=== PATIENT | male | born 1955 | race Caucasian/White ===

== ENCOUNTER 2020-03-12 11:33 | Emergency (ER) | payer MEDICARE, SELFPAY ==
[2020-03-12 11:43] VITALS: BP 118/93; PULSE 104; RESP 16; TEMP 37.1; O2SAT 98
--- NOTE | 2020-03-12 11:46 | ED.SKABFB ---
HPI - Skin/Abscess/Foreign Bdy General Chief complaint: Skin/Abscess/Foreign Body Stated complaint: rash on arms/legs/hands Time Seen by Provider: 03/12/20 11:46 Source: patient and RN notes reviewed History of Present Illness HPI narrative: Patient is a 64-year-old male who presents the urgent care with complaints of a bruising rash to bilateral arms, hands, legs, chin. Patient states that it started approximately 2 weeks ago and he is now starting week 3. Patient has been lathering himself and calamine lotion but states some of it is just not healing . Patient denies of any fevers, nausea, vomiting. Patient has not used anything else [id number] for symptoms. No other acute complaints. No acute distress noted. Patient read the plan of care. Related Data Allergies Allergy/AdvReac Type Severity Reaction Status Date / Time No Known Allergies Allergy Verified 03/12/20 11:57 Review of Systems Review of Systems: Narrative: CONSTITUTIONAL: Denies fever, chills, or sweats. EYES: Denies visual changes, redness, or discharge. ENT: Denies rhinorrhea, congestion, sore throat, or otalgia. CARDIOVASCULAR: Denies chest pain, palpitations, or edema. RESPIRATORY: Denies cough or dyspnea. GASTROINTESTINAL: Denies abdominal pain, nausea, vomiting, or diarrhea. GENITOURINARY: Denies dysuria or hematuria. SKIN: Reports of poison elvis to bilateral lower legs, bilateral arms and the face MUSCULOSKELETAL: Denies back pain, joint pain, or myalgia. NEUROLOGIC: Denies headache, numbness, or weakness. All other systems reviewed are negative, except as documented in HPI. PMFSH Comments At the time of my signature, I reviewed and agree with the nursing past medical, surgical, social, and family history. There is no relevant family history pertinent to the patient complaint. Exam Narrative: Exam Narrative: GENERAL: This is a well-nourished, well-developed patient, in no apparent distress. HEAD: normocephalic, atraumatic. EYES: PERRL. Sclera clear/white. Vision is grossly intact. EARS: External ears normal NOSE: External nose normal with no obvious nasal discharge, nares without redness, no rhinorrhea. THROAT: Mucous membranes moist NECK: Neck supple SKIN: 6 x 8cm area of erythema of oozing wound to the anterior right knee, 3 x 3 cm area of crusted impetigo noted to the chin, 3 cm linear erythemic region to the left upper arm; multiple areas of Conchis dermatitis noted bilateral lower legs, bilateral arms NEURO: awake, alert, and oriented to person, place and time. There were no obvious focal neurologic abnormalities. EXTREMITIES: Mild edema noted to the right knee with positive strong right pedal pulse and capillary refill less than 2 seconds. Course Vital Signs Vital signs: Vital Signs Temperature 98.8 F 03/12/20 11:43 Pulse Rate 104 H 03/12/20 11:43 Respiratory Rate 16 03/12/20 11:43 Blood Pressure 118/93 H 03/12/20 11:43 Pulse Oximetry 98 03/12/20 11:43 Temperature 98.8 F 03/12/20 11:43 Pulse Rate 104 H 03/12/20 11:43 Respiratory Rate 16 03/12/20 11:43 Blood Pressure 118/93 H 03/12/20 11:43 Pulse Oximetry 98 03/12/20 11:43 Reviewed?patient is informed that they may have pre-hypertension or hypertension based on a blood pressure reading in the department. I recommend the patient call the primary care provider listed on their discharge instructions or a physician of their choice this week to arrange follow-up for further evaluation of possible pre-hypertension or hypertension. MDM - Skin/Abscess/Foreign Bdy MDM Narrative Medical decision making narrative: Advised the patient not to put calamine lotion over the areas of infection to the right knee, left upper arm and right chin. Calamine lotion is likely not necessary when she start the oral steroid regimen. Make sure to complete the steroids as directed. Complete oral antibiotic regimen as directed. If you develop any severe nausea or vomiting or increased rash wi
== END 2020-03-12 12:20 | disposition home or self-care (01) ==
PROVIDERS: Emergency Provider Nurse Practitioner Family
DX: L23.7 Allergic contact dermatitis due to plants, except food (principal); L01.00 Impetigo, unspecified; L03.115 Cellulitis of right lower limb
CPT/HCPCS: 99213; G0463

== ENCOUNTER 2023-12-09 11:16 | Outpatient (CLI) | payer MEDICARE, SELFPAY ==
--- NOTE | ~2023-12-09 | XR_ITS ---
Clinical Indication: Cough PA and lateral views of the chest: Comparison: None Findings: There is interstitial prominence/pattern in the right lung base. Left lung clear.. Cardiom ediastinal silhouette is within normal limits. Bones and soft tissues are unremarkable. Impression: Interstitial pattern right lung base, which could reflect small airways infectious process or other a typical infection. Reviewed, dictated and finalized at location . Impression: Interstitial pattern right lung base, which could reflect small airways infecti ous process or other atypical infection.
[2023-12-09 18:59] LABS: Hematocrit 45.7 % (42.0-52.0); Hemoglobin 15.3 g/dL (14.0-18.0); Mean Corpuscular HGB Conc 33.5 g/dl (32-36); Mean Corpuscular Hemoglobin 33.6 pg (26-34); Mean Corpuscular Volume 100.4 fl (80-100); Mean Platelet Volume 9.6 fl (7.4-10.4); Platelet Count Result 324 k/mm3 (150-375); Red Blood Count 4.55 M/mm3 (4.6-6.20); Red Cell Distribution Width 13.2 % (11.5-14.5); White Blood Count 10.9 K/mm3 (4.5-10.0)
[2023-12-09 19:50] LABS: Alanine Aminotransferase 24 U/L (6-50); Albumin Level 4.6 g/dL (3.5-5.1); Alkaline Phosphatase 115 U/L (38-126); Anion Gap 11 mmol/L (4-12); Aspartate Amino Transferase 87 U/L (17-59); Bilirubin,Total 1.3 mg/dL (0.2-1.3); Blood Urea Nitrogen 8 mg/dL (9-20); Calcium 9.6 mg/dL (8.4-10.2); Carbon Dioxide 26 mmol/L (22-30); Chloride 94 mmol/L (98-107); Estimated Glomerular Filt Rate > 60; Glucose 101 mg/dL (65-110); Potassium 4.9 mmol/L (3.4-5.0); Sodium 131 mmol/L (137-145)
[2023-12-09 22:27] LABS: Folic Acid 11.1 ng/mL (2.76->20)
== END 2023-12-09 11:17 | disposition home or self-care (01) ==
PROVIDERS: PCP Nurse Practitioner Adult Health; Visit Provider Nurse Practitioner Adult Health
DX: F10.10 Alcohol abuse, uncomplicated (principal); R05.9 Cough, unspecified; Z87.891 Personal history of nicotine dependence; R53.1 Weakness; Z12.5 Encounter for screening for malignant neoplasm of prostate; R91.8 Other nonspecific abnormal finding of lung field
CPT/HCPCS: 36415; 71046; 80053; 82607; 82746; 84153; 84425; 85027; G0103

== ENCOUNTER 2023-12-23 11:25 | Outpatient (CLI) | payer MEDICARE, SELFPAY ==
--- NOTE | ~2023-12-23 | XR_ITS ---
XR chest 2V 12/23/2023 11:37 Indication: Interstitial infiltrates on prior examination. Procedure: 2 view chest Comparison: 12/09/2023 Findings: Persistent coarse interstitial infiltrates bilaterally with reticulonodular appearance in t he right lung base. Elevated left diaphragm. No pleural effusion. Heart size normal. There is atheros clerosis. Impression: 1: Coarse bilateral interstitial infiltrates are persistent. Differential diagnosis includes pneumoni a, edema and interstitial fibrosis. Consider correlation with CT chest without contrast. Reviewed, dictated and finalized at location B. Impression: 1: Coarse bilateral interstitial infiltrates are persistent. Differential diagn osis includes pneumonia, edema and interstitial fibrosis. Consider correlation with CT chest without contrast.
== END 2023-12-23 11:26 | disposition home or self-care (01) ==
LOC: ANHBWCIMG 11:27
PROVIDERS: PCP Nurse Practitioner Adult Health; Visit Provider Nurse Practitioner Adult Health
DX: R93.89 Abnormal findings on diagnostic imaging of other specified body structures (principal)
CPT/HCPCS: 71046

== ENCOUNTER 2024-01-09 12:16 | Outpatient (CLI) | payer MEDICARE, SELFPAY ==
--- NOTE | 2024-01-09 17:01 | WPDSIXMINUTE ---
Six Minute Walk Procedure Procedure Performed Pulmonary Stress Test (6 min walk) Six Minute Walk Six Minute Walk: This is a 6 minute walk test. The test was performed and interpreted in accordance with the 2014 ERS/ATS task force guidelines. Findings: The patient's resting room air oxygen saturation measured by pulse oximetry was 94% and heart rate was 59 bpm. Patient ambulated for 244 meters and oxygen saturation remained 93 to 96%. Heart rate at the end of the study was 76 bpm. The patient did not qualify for supplemental oxygen at rest or with ambulation. There are no prior studies for comparison.
== END 2024-01-09 12:17 | disposition home or self-care (01) ==
LOC: ANHPFT 12:17
PROVIDERS: PCP Nurse Practitioner Adult Health; Visit Provider Nurse Practitioner Adult Health
DX: R06.02 Shortness of breath (principal); Z87.891 Personal history of nicotine dependence
CPT/HCPCS: 94618

== ENCOUNTER 2024-04-27 11:28 | Outpatient (CLI) | payer MEDICARE, SELFPAY ==
[2024-04-27 20:06] LABS: Hematocrit 42.4 % (42.0-52.0); Hemoglobin 14.6 g/dL (14.0-18.0); Mean Corpuscular HGB Conc 34.4 g/dl (32-36); Mean Corpuscular Volume 104.7 fl (80-100); Mean Platelet Volume 9.5 fl (7.4-10.4); Platelet Count Result 281 k/mm3 (150-375); Red Blood Count 4.05 M/mm3 (4.6-6.20); White Blood Count 5.5 K/mm3 (4.5-10.0)
[2024-04-27 20:24] LABS: Alanine Aminotransferase 52 U/L (6-50); Albumin Level 4.2 g/dL (3.5-5.1); Alkaline Phosphatase 173 U/L (38-126); Anion Gap 8 mmol/L (4-12); Aspartate Amino Transferase 140 U/L (17-59); Bilirubin,Total 1.2 mg/dL (0.2-1.3); Blood Urea Nitrogen 7 mg/dL (9-20); Calcium 8.8 mg/dL (8.4-10.2); Carbon Dioxide 28 mmol/L (22-30); Chloride 93 mmol/L (98-107); Cholesterol 175 mg/dL (0-200); Estimated Glomerular Filt Rate > 60; Glucose 91 mg/dL (65-110); Potassium 4.5 mmol/L (3.4-5.0); Sodium 129 mmol/L (137-145); Triglycerides 63 mg/dL (<150)
[2024-04-27 20:27] LABS: HDL Direct 133 mg/dL; LDL Cholesterol Direct < 30 mg/dL
[2024-04-27 20:34] LABS: Free T4 Free Thyroxine 0.94 ng/mL (0.78-2.19)
[2024-04-27 21:20] LABS: Folic Acid > 20.0 ng/mL (2.76->20); Vitamin B12 > 1000.0 pg/mL (239-931)
[2024-04-29 11:13] LABS: Thyroid Peroxidase Antibodies <1 IU/mL (<9)
== END 2024-04-27 11:29 | disposition home or self-care (01) ==
LOC: ANHBWCLAB 11:30
PROVIDERS: PCP Nurse Practitioner Adult Health; Visit Provider Nurse Practitioner Adult Health
DX: I25.10 Atherosclerotic heart disease of native coronary artery without angina pectoris (principal); E04.1 Nontoxic single thyroid nodule; F10.10 Alcohol abuse, uncomplicated
CPT/HCPCS: 36415; 80053; 80061; 82607; 82746; 84439; 84443; 85027; 86376

== ENCOUNTER 2024-06-15 09:58 | Outpatient (CLI) | payer MEDICARE, SELFPAY ==
--- NOTE | ~2024-06-15 | NM_ITS ---
EXAMINATION: NM jung stress w perfusion DATE: 06/15/2024 12:01 INDICATION: Cardiac murmur. TECHNIQUE: Rest images were obtained following intravenous administration of 9.2 mCi Tc99m tetrofosmi n (Myoview). The patient was infused intravenously with Lexiscan (regadenoson). Then, 29.7 mCi Tc99m tetrofosmin (Myoview) was administered intravenously, and stress images were obtained. Data was recon structed into short axis and horizontal and vertical long axis SPECT images. Gated SPECT images were also obtained. COMPARISON: None. FINDINGS: There is a moderate-sized, mild, fixed perfusion defect involving apical septal, mid jaun septal, and mid inferoseptal segments of left ventricle, consistent with infarct. No reversible compo nent to suggest ischemia.. There is no segmental wall motion abnormality. Left ventricular ejection fraction measures >70%. IMPRESSION: 1. Moderate-sized area of mild infarct involving apical septal, mid anteroseptal, and mid inferosepta l segments of left ventricle. 2. Normal left ventricular ejection fraction measuring >70%. Reviewed, dictated and finalized at location A. IMPRESSION: 1. Moderate-sized area of mild infarct involving apical septal, mid anterosepta l, and mid inferoseptal segments of left ventricle. 2. Normal left ventricular ejection fraction measuring >70%.
--- NOTE | 2024-06-15 10:09 | EST_ITS ---
Patient Info Name: Joshua Quick Age: 69 years : 1955 Gender: Male Ht: 71 in Wt: 199 lbs BSA: 2.14 m2 HR: 92 bpm BP: 119 / 71 mmHg Exam Date: 06/15/2024 10:52 AM Exam Location: Echo Lab Patient Status: Outpatient Admit Date: 06/15/2024 Staff Ordering Physician: Mario Sam DO Attending Provider: Mario Sam DO Exercise Technologist: Zahira Rubio RDCS Exercise Physician: Mario Sam DO Exam Type: CA stress jung w NM Study Info A regadenoson stress test was performed. Summary 1. 1. Negative lexiscan stress test for ischemic ST changes by ECG criteria. 2. 2. Stable hemodynamics throughout the test. 3. 3. Nuclear scan to follow and will be reported separately. Please correlate with it. 4. 4. Patient informed of the above results. Protocol: Lexiscan Stress ECG Details Stage: REST Duration (min): 3 min : 26 sec HR (bpm): 93 SBP (mmHg): 119 DBP (mmHg): 71 Stage: REST Duration (min): 7 min : 19 sec HR (bpm): 96 SBP (mmHg): 119 DBP (mmHg): 71 Stage: STAGE 1 Duration (min): 1 min : 0 sec HR (bpm): 108 SBP (mmHg): 132 DBP (mmHg): 62 Stage: RECOVERY Duration (min): 1 min : 0 sec HR (bpm): 110 SBP (mmHg): 132 DBP (mmHg): 62 Stage: RECOVERY Duration (min): 2 min : 0 sec HR (bpm): 105 SBP (mmHg): 132 DBP (mmHg): 62 Stage: RECOVERY Duration (min): 3 min : 0 sec HR (bpm): 107 SBP (mmHg): 100 DBP (mmHg): 55 Stage: RECOVERY Duration (min): 3 min : 5 sec HR (bpm): 107 SBP (mmHg): 100 DBP (mmHg): 55 Rest HR: 96 bpm Peak HR: 112 bpm Rest Sys BP: 119 mmHg Peak Sys BP: 132 mmHg Max Pred HR: 149 bpm % Max Pred HR: 75 % Target HR: 127 bpm Max RPP: 14,784 bpm*mmHg Termination Reason: Completed protocol Cardiac Symptoms: Shortness of breath Total Time: 1 min : 0 sec Rest Lance BP: 71 mmHg Peak Lance BP: 62 mmHg Total Dose: 0.4 mg Resting ECG Sinus rhythm. Stress ECG No ST changes. Arrhythmias None. Report Signatures
== END 2024-06-15 09:59 | disposition home or self-care (01) ==
PROVIDERS: PCP Nurse Practitioner Adult Health; Visit Provider Internal Medicine Cardiovascular Disease
DX: R07.9 Chest pain, unspecified (principal); R01.1 Cardiac murmur, unspecified
CPT/HCPCS: 78452; 93017; A9502; J2785

== ENCOUNTER 2024-07-07 12:26 | Outpatient (CLI) | payer MEDICARE, SELFPAY ==
--- NOTE | ~2024-07-07 | US_ITS ---
EXAMINATION: US FNA w image guidance DATE: 07/07/2024 13:35 INDICATION: Right thyroid nodule. TECHNIQUE: The procedure and its benefits and risks were discussed with the patient. Risks specifically discusse d included bleeding. The patient verbalized understanding of the risks and agreed to proceed. The nec k was prepped and draped in the usual sterile manner. 1% lidocaine was used for local anesthesia. 6 passes were made with a 25G needle into the lesion under ultrasound guidance. There were no immedia te complications. FINDINGS: Grayscale ultrasound images demonstrate needles advanced into a 4.4 cm nodule in inferior right thyro id lobe for biopsy. IMPRESSION: 1. Ultrasound-guided fine needle aspiration of a right thyroid nodule. Reviewed, dictated and finalized at location A. H HAND
== END 2024-07-07 12:27 | disposition home or self-care (01) ==
LOC: ANHIMG 12:27
PROVIDERS: PCP Nurse Practitioner Adult Health; Visit Provider Nurse Practitioner Adult Health
DX: E04.1 Nontoxic single thyroid nodule (principal)
CPT/HCPCS: 10005; 88172; 88173; 88305

== ENCOUNTER 2024-11-29 13:43 | Outpatient (CLI) | payer MEDICARE, SELFPAY ==
--- NOTE | ~2024-11-29 | XR_ITS ---
AP and lateral views of the right hip Clinical history: Pain Findings: No acute fracture or dislocation is seen. Status post prior ORIF of the proximal right femu r with healed fracture deformity at the intertrochanteric region.. Right hip joint space is preserved . Soft tissues are unremarkable. Impression: Status post prior ORIF of the proximal right femur with probable healed intertrochanteric fracture de formity. No acute fracture evident. Reviewed, dictated and finalized at location . Impression: Status post prior ORIF of the proximal right femur with probable healed intertr ochanteric fracture deformity. No acute fracture evident.
--- NOTE | ~2024-11-29 | XR_ITS ---
Clinical Indication: Chronic shortness of breath PA and lateral views of the chest: Comparison: 12/23/2023 Findings: The lungs are clear, aside from small calcified right apical granulomas, without evidence o f focal consolidation or pleural effusion. Cardiomediastinal silhouette is within normal limits. Bon es and soft tissues are unremarkable. Impression: No acute abnormality. Reviewed, dictated and finalized at location . Impression: No acute abnormality.
--- OUTSIDE RECORDS SUMMARY | 2024-11-29 15:44 | XMS_ITS | Encounter Summary ---
Author Organization [facility] Address [address] [place] [address] Phone Care Team Providers Care Winding Machine Operator Name Role Phone Zaheer Forman MD Primary Care Provider [phone] Aruna Fenton MD Unavailable [phone] Encounter Details Date Type Department Care Team (Late st Contact Info) Description 04/05/2022 Nursing Facility [facility] [address] [place] [id number] Richard Quispe, PAC [address] [place] [address] Social History Tobacco Use Types Packs/Day Years Used Date Smoking Tobacco: Every Day Cigarettes 1.5 40 Smokeless Tobacco: Never Alcohol Use Standard Drinks/Week Comments Yes 50 (1 standard drink = 0.6 oz pure alcohol) daily intake of at least 10 beers Sexually Active Control Partners Comments Not Currently Sex and Gender Information Value Date Recorded Sex Assigned at Not on file Legal Sex Male 11:42 PM CDT Gender Identity Not on file Sexual Orientation Not on file COVID-19 Exposure Response Date Recorded In the last 10 days, have yo u been in contact with someone who was confirmed or suspected to have Coronavirus/COVID-19? No / Unsure 04/08/2022 8:50 AM CDT documented as of this encounter Progress Notes * Richard Quispe, PAC - 04/05/2022 11:55 AM CDT [facility] PROGRESS NOTE Joshua Quick Jr. is a 66 y.o. male at [facility] for rehabilitation. Prior to coming to rehabilitation facility patient was hospitalized at [facility] fora right femur fracture. Had significant hyponatremia due to his alcohol abuse which improved with IV fluids. Subjective: Interval History: Patient says that he is feeling well. Feels like he is continuing to recover. Feels like COVID-19 symptoms are resolving. Therapy is going well. Has much less sediment is catheter now. Urinalysis was sent off earlier this week but I do not see any results yet. He says he feels well and denies any signs or symptoms of urinary infection. We discussed doing another voiding trial but since he has urology appointment until 04/12 will defer to Urology. Past medical history: Alcohol abuse Cigarette smoking Family History Problem Relation Age of Onset ??? Diabetes Father ??? Hypertension Sister Social History Socioeconomic History ??? Marital status: Single Spouse name: Not on file ??? Number of children: Not on file ??? Years of education: Not on file ??? Highest education level: Not on file Occupational History ??? Not on file Tobacco Use ??? Smoking status: Current Every Day Smoker Packs/day: 1.50 Years: 40.00 Pack years: 60.00 ??? Smokeless tobacco: Never Used Vaping Use ??? Vaping Use: Never used Substance and Sexual Activity ??? Alcohol use: Yes Alcohol/week: 30.0 oz Types: 50 Cans of beer per week Comment: daily intake of at least 10 beers ??? Drug use: Never ??? Sexual activity: Not Currently Other Topics Concern ??? Not on file Social History Narrative ??? Not on file Past Surgical History: Procedure Laterality Date ??? ADENOIDECTOMY Bilateral 1961 ??? HIP FRACTURE SURGERY Right 03/03/2022 Procedure: OPEN REDUCTION INTERNAL FIXATION RIGHT HIP WITH GAMMA NAIL INSERTION AND APPLICATION OF PREVENA INCISION MANAGMENT SYSTEM; Surgeon: Vinod Valdes MD; Location: [facility]; Service: Orthopaedic ??? KNEE ASPIRATION 03/03/2022 Procedure: RIGHT KNEE ASPIRATION; Surgeon: Vinod Valdes MD; Location: [facility]; Service: Orthopaedic ??? KNEE SURGERY Review of Systems: A 14 point comprehensive review of systems was negative except what is documented in interval history above. Objective: Exam: Vital Signs: B/P: 132/76 Pulse: 95 Respirations: 18 Temperature: 97.5 General: Well developed, well nourished, in no distress Skin: Normal appearance, normal turgor, no rashes 03/19 - well-healing surgical scar over lateral right hip HEENT: Normocephalic, atraumatic, no flaring Eyes: nonicteric, intact extra occular movement, PERRL Neck: normal, supple, no lymphadenopathy Heart: regular rate and rhythm, S1, S2 normal, no murmur, click, rub or gallop Lungs: clear to ausculation, normal respirations, normal precautions Abdominal: soft, non-tender; bowel sounds normal; no masses, no organomegaly Extremities: no deformities, joint mobility appears intact, no clubbing - 03/19 - wearing brace on right knee Neuro: Non-focal, CN intact, sensory and motor intact Psychological: alert and oriented X3, appropriate mood and affect, Intact judgement and memory Genitourinary: Kat catheter in place Lab Results: BMP on 03/03 in the hospital was remarkable for a sodium of 131, chloride 98 calcium 7.6. CBC on 03/04 remarkable for hemoglobin of 10.2, MCV 102 otherwise normal 03/06: Sodium of 133, calcium 7.8, rest of BMP is unremarkable. Hemoglobin 9.0, rest of CBC is unremarkable. Imaging: None in the [facility] Assessment/Plan: Generalized weakness and deconditioning Receiving jail care and physical therapy rehabilitation Right femur fracture Status post ORIF on 03/[address] Valdes Wound VAC to stay on until cleared by Dr. Valdes P.r.n. pain medicines 03/19 - wound VAC removed. Incision site looks well. Acute COVID-19 infection 03/29 - diagnosed on 03/27. Paxlovid ordered yesterday. Mild symptoms currently. Beth Charles ordered to be scheduled for the next 1 week and then p.r.n. after that. Encouraged rest and hydration. 04/02 - stable 04/05 - better Urinary retention Kat catheter in place since hospitalization Likely attempt a voiding trial soon 03/15 - will attempt a voiding trial today 03/19 - failed voiding trial. Urology referral placed. Urology appointment scheduled for April 1204/05 - had a lot of sediment earlier this week. Kat catheter had to be changed. Urinalysis was sent off but is not resulted yet. He was encouraged to drink a lot a water and the sediment is much better. Alcohol abuse Drinks 10 beers a day Monitor for signs of withdrawal Continue thiamin and folate supplementation 03/15 - no withdrawal symptoms Right shoulder pain Since initial fall resulting in hip fracture. X-rays in hospital showing degenerative changes but nothing acute. 03/08 - educated on gentle hrbme-dr-gxobsd exercises as tolerated. 04/05 - better Lightheadedness 03/05 - exam reassuring. Could be early dehydration versus uncontrolled pain versus other. Strongly encouraged oral hydration. Patient voiced understanding but I am not certain he is agreeable. 03/08 - resolved 03/12 - returned yesterday and blood pressure was low. Resolved today. Strongly encouraged oral hydration and he says he has not been doing very good at this. 03/19 - resolved. Clinically patient looks well hydrated today. Trouble sleeping Well controlled on melatonin Hyponatremia Patient was significantly hyponatremic with sodium of 124 on admission to hospital. Improved to 131at time of discharge with IV fluids. Monitor periodically. Secondary to alcohol abuse and dehydration. 03/08 - up to 133 on chemistry drawn 2 days ago. Cigarette smoking 03/19- patient says he has stopped and not planning on starting again. VTE Prophylaxis: Anticoagulated on Eliquis until 04/09 I discussed advanced care planning with this patient. This note was dictated using [employer] fluency dictation system and there may be errors in purchasing and fiscal clerk. Despite proof reading the note, there may be mistakes and I apologize for those. By: JEANNA Alatorre, 04/05/2022 11:55 AM CDT documented in this encounter Plan of Treatment Not on file documented as of this encounter Visit Diagnoses Not on filedocumented in this encounter Care Teams Winding Machine Operator Relationship Specialty Start Date End Date Zaheer Forman MD [address] [place] [address] PCP - General Family Medicine 03/02/22 Aruna Fenton MD [address] [address] Consulting Physician Urology 04/12/22 documented as of this encounter
--- OUTSIDE RECORDS SUMMARY | 2024-11-29 15:44 | XMS_ITS | Encounter Summary ---
Author Organization [facility] Address [address] [place] [address] Phone Care Team Providers Care Barrel Leveler Name Role Phone Zaheer Forman MD Primary Care Provider [phone] Aruna Fenton MD Unavailable [phone] Encounter Details Date Type Department Care Team (Late st Contact Info) Description 03/26/2022 Nursing Facility [facility] [address] [place] [phone] Richard Quispe, PAC [address] [place] [address] Social History Tobacco Use Types [...] suspected to have Coronavirus/COVID-19? No / Unsure 03/18/2022 9:12 AM CDT documented as of this encounter Progress Notes * Richard Quispe, PAC - 03/26/2022 3:13 PM CDT [facility] PROGRESS NOTE Joshua Quick Jr. is a 66 y.o. male at [facility] for rehabilitation. Prior to coming to rehabilitation facility patient was hospitalized at [facility] fora right femur fracture. Had significant hyponatremia due to his alcohol abuse which improved with IV fluids. Subjective: Interval History: Patient saying that he feels ???good?? . Feels like he is continuing to improve. He is sleeping well. Pain well controlled. No GI symptoms. No other concerns. Past medical history: Alcohol abuse Cigarette smoking [...] MANAGMENT SYSTEM; Surgeon: Vinod Valdes MD; Location: [facility]; Service: Orthopaedic ??? KNEE ASPIRATION 03/03/2022 Procedure: RIGHT KNEE ASPIRATION; Surgeon: Vinod Valdes MD; Location: [facility]; Service: Orthopaedic ??? KNEE SURGERY Review of Systems: A 14 point comprehensive review of systems was negative except what is documented in interval history above. Objective: Exam: Vital Signs: B/P: 132/76 Pulse: 88 Respirations: 16 Temperature: 97.6 General: Well developed, well nourished, in no [...] CBC is unremarkable. Imaging: None in the long-term Assessment/Plan: Generalized weakness and deconditioning Receiving [facility] care and physical therapy rehabilitation Right femur fracture Status post ORIF on 03/[address] Valdes Wound VAC to stay on until cleared by Dr. Valdes P.r.n. pain medicines 03/19 - wound VAC removed. Incision site looks well. Alcohol abuse Drinks 10 beers a day Monitor for signs of withdrawal Continue thiamin and folate supplementation 03/15 - no withdrawal symptoms Right shoulder pain Since initial fall resulting in hip fracture. X-rays in hospital showing degenerative changes but nothing acute. 03/08 - educated on gentle zofaq-up-hymbqj exercises as tolerated. Lightheadedness 03/05 - exam reassuring. Could be [...] resolved. Clinically patient looks well hydrated today. Urinary retention Kat catheter in place since hospitalization Likely attempt a voiding trial soon 03/15 - will attempt a voiding trial today 03/19 - failed voiding trial. Urology referral placed. Trouble sleeping Well controlled on melatonin Hyponatremia [...] this patient. This note was dictated using [employer] fluency dictation system and there may be errors in otr company driver. Despite proof reading the note, there may be mistakes and I apologize for those. By: Richard Quispe, PAC, 03/26/2022 3:13 PM CDT documented in this encounter Plan of Treatment Not on file documented as of this encounter Visit Diagnoses Not on filedocumented in this encounter Care Teams Barrel Leveler Relationship Specialty Start Date End Date Zaheer Forman MD [address] [place] [address] PCP - General Family Medicine 03/02/22 Aruna Fenton MD [address] [address] Consulting Physician Urology 04/12/22 documented as of this encounter
--- OUTSIDE RECORDS SUMMARY | 2024-11-29 15:44 | XMS_ITS | Encounter Summary ---
Author Organization [facility] Address [address] [place] [address] Phone Care Team Providers Care Windows 7 Deployment Lead Name Role Phone Zaheer Forman MD Primary Care Provider [phone] Aruna Fenton MD Unavailable [phone] Encounter Details Date Type Department Care Team (Late st Contact Info) Description 03/08/2022 Nursing Facility [facility] [address] [place] [phone] Richard Quispe, PAC [address] [place] [address] Social History Tobacco Use Types [...] suspected to have Coronavirus/COVID-19? No / Unsure 03/02/2022 2:39 PM CDT documented as of this encounter Progress Notes * Richard Quispe, PAC - 03/08/2022 12:03 PM CDT [facility] [place] LONG-TERM PROGRESS NOTE Joshua Quick Jr. is a 66 y.o. male at [facility] for rehabilitation. Prior to coming to rehabilitation facility patient was hospitalized at [facility] fora right femur fracture. Had significant hyponatremia due to his alcohol abuse which improved with IV fluids. Subjective: Interval History: Patient makes note of continued right shoulder pain since his initial fall. He is able to raise it to about 90?? in abduction and flexion. Does no previous history of a rotator cuff tear. The lightheadedness that was present when I saw him earlier this week has resolved. He is feeling well otherwise and denies any acute symptoms or concerns. Past medical history: Alcohol abuse Family History Problem Relation Age of Onset [...] MANAGMENT SYSTEM; Surgeon: Vinod Valdes MD; Location: [facility]; Service: Orthopaedic ??? KNEE ASPIRATION 03/03/2022 Procedure: RIGHT KNEE ASPIRATION; Surgeon: Vinod Valdes MD; Location: [facility]; Service: Orthopaedic ??? KNEE SURGERY Review of Systems: A 14 point comprehensive review of systems was negative except what is documented in interval history above. Objective: Exam: Vital Signs: B/P: 138/84 Pulse: 90 Respirations: 18 Temperature: 98 General: Well developed, well nourished, in no distress Skin: Normal appearance, normal turgor, no rashes HEENT: Normocephalic, atraumatic, no flaring Eyes: nonicteric, intact extra occular movement, PERRL Neck: normal, supple, no lymphadenopathy Heart: regular rate and rhythm, S1, S2 normal, no murmur, click, rub or gallop Lungs: clear to ausculation, normal respirations, normal precautions Abdominal: soft, non-tender; bowel sounds normal; no masses, no organomegaly Extremities: no deformities, joint mobility appears intact, no clubbing Neuro: Non-focal, CN intact, sensory and motor intact Psychological: alert and oriented X3, appropriate mood and affect, Intact judgement and memory Lab Results: BMP on 03/03 in the hospital was remarkable for a sodium of 131, chloride 98 calcium 7.6. CBC on 03/04 remarkable for hemoglobin of 10.2, MCV 102 otherwise normal 03/06: Sodium of 133, calcium 7.8, rest of BMP is unremarkable. Hemoglobin 9.0, rest of CBC is unremarkable. Imaging: None in the longterm Assessment/Plan: Generalized weakness and deconditioning Receiving residential care and physical therapy rehabilitation Right femur fracture Status post ORIF on 03/[address] Valdes Wound VAC to stay on until cleared by Dr. Valdes P.r.n. pain medicines Has follow-up appointment with Ortho on 03/18 Alcohol abuse Drinks 10 beers a day Monitor for signs of withdrawal Continue thiamin and folate supplementation CIWA protocol is not possible in this facility Okay to have up to 2 beers a day in rehab facility Right shoulder pain Since initial fall resulting in hip fracture. X-rays in hospital showing degenerative changes but nothing acute. 03/08 - educated on gentle rnmkt-dx-ldgdgu exercises as tolerated. Lightheadedness 03/05 - exam reassuring. Could be early dehydration versus uncontrolled pain versus other. Strongly encouraged oral hydration. Patient voiced understanding but I am not certain he is agreeable. 03/08 - resolved Urinary retention Kat catheter in place since hospitalization Likely attempt a voiding trial soon Hyponatremia Patient was significantly hyponatremic with sodium of 124 on admission to hospital. Improved to 131at time of discharge with IV fluids. Monitor periodically. Secondary to alcohol abuse and dehydration. 03/08 - up to 133 on chemistry drawn 2 days ago. VTE Prophylaxis: Anticoagulated on Eliquis until 04/09 I discussed advanced care planning with this patient. This note was dictated using M*Modal fluency dictation system and there may be errors in police surgeon. Despite proof reading the note, there may be mistakes and I apologize for those. By: Richard Quispe, PAC, 03/08/2022 12:03 PM CDT documented in this encounter Plan of Treatment Not on file documented as of this encounter Visit Diagnoses Not on filedocumented in this encounter Care Teams Windows 7 Deployment Lead Relationship Specialty Start Date End Date Zaheer Forman MD [address] [place] [id number] PCP - General Family Medicine 03/02/22 Aruna Fenton MD [address] [address] Consulting Physician Urology 04/12/22 documented as of this encounter
--- OUTSIDE RECORDS SUMMARY | 2024-11-29 15:44 | XMS_ITS | Encounter Summary ---
Author Organization [facility] Address [address] [place] [address] Phone Care Team Providers Care Senior Biostatistician/Group Leader Name Role Phone Zaheer Forman MD Primary Care Provider [phone] Aruna Fenton MD Unavailable [phone] Encounter Details Date Type Department Care Team (Late st Contact Info) Description 04/02/2022 Nursing Facility [facility]IRE[facility] SERVICES [address] [place] [phone] Richard Quispe, PAC [address] [place] [address] Social History Tobacco Use Types [...] Progress Notes * Richard Quispe, PAC - 04/02/2022 4:06 PM CDT [facility] [place] ASSISTED PROGRESS NOTE Joshua Quick Jr. is a 66 y.o. male at [facility] for rehabilitation. Prior to coming to rehabilitation facility patient was hospitalized at [facility] fora right femur fracture. Had significant hyponatremia due to his alcohol abuse which improved with IV fluids. Subjective: Interval History: Patient has no new concerns. Still having mild cough. No other COVID-19 symptoms. Feels like therapy is going well. Kat catheter became clogged and had to be replaced last night. Past medical history: Alcohol abuse Cigarette smoking [...] MANAGMENT SYSTEM; Surgeon: Vinod Valdes MD; Location: [facility]; Service: Orthopaedic ??? KNEE ASPIRATION 03/03/2022 Procedure: RIGHT KNEE ASPIRATION; Surgeon: Vinod Valdes MD; Location: [facility]; Service: Orthopaedic ??? KNEE SURGERY Review of Systems: A 14 point comprehensive review of systems was negative except what is documented in interval history above. Objective: Exam: Vital Signs: B/P: 132/76 Pulse: 86 Respirations: 20 Temperature: 98 General: Well developed, well nourished, [...] CBC is unremarkable. Imaging: None in the penitentiary Assessment/Plan: Generalized weakness and deconditioning Receiving care home care and physical therapy rehabilitation Right femur [...] Encouraged rest and hydration. 04/02 - stable Alcohol abuse Drinks 10 beers a day Monitor for signs of withdrawal Continue thiamin and folate supplementation 03/15 - no withdrawal symptoms Right shoulder pain Since initial fall resulting in hip fracture. X-rays in hospital showing degenerative changes but nothing acute. 03/08 - educated on gentle mfcpy-sz-yaiouj exercises as tolerated. Lightheadedness 03/05 - exam [...] referral placed. Urology appointment scheduled for April 12 Trouble sleeping Well controlled on melatonin Hyponatremia [...] this patient. This note was dictated using [employer] fluency dictation system and there may be errors in web production assistant. Despite proof reading the note, there may be mistakes and I apologize for those. By: JEANNA Alatorre, 04/02/2022 4:07 PM CDT documented in this encounter Plan of Treatment Not on file documented as of this encounter Visit Diagnoses Not on filedocumented in this encounter Care Teams Senior Biostatistician/Group Leader Relationship Specialty Start Date End Date Zaheer Forman MD [address] [place] [id number] PCP - General Family Medicine 03/02/22 Aruna Fenton MD [address] [address] Consulting Physician Urology 04/12/22 documented as of this encounter
--- OUTSIDE RECORDS SUMMARY | 2024-11-29 15:44 | XMS_ITS | Encounter Summary ---
Author Organization [facility] Address [address] [place] [address] Phone Care Team Providers Care Juvenile Justice Officer Name Role Phone Zaheer Forman MD Primary Care Provider [phone] Aruna Fenton MD Unavailable [phone] Encounter Details Date Type Department Care Team (Late st Contact Info) Description 03/15/2022 Nursing Facility [facility] SERVICES [address] [place] [phone] Richard Quispe, PAC [address] [place] [address] Social History Tobacco Use Types [...] Progress Notes * Richard Quispe, PAC - 03/15/2022 9:40 AM CDT [facility] [place] PROGRESS NOTE Joshua Quick Jr. is a 66 y.o. male at [facility] for rehabilitation. Prior to coming to rehabilitation facility patient was hospitalized at [facility] fora right femur fracture. Had significant hyponatremia due to his alcohol abuse which improved with IV fluids. Subjective: Interval History: Today patient says he is feeling okay. Feels like he is improving overall. Lightheadedness is quite a bit better. Says that he has been drinking more water however urine in Kat bag still looks fairly dark. Clinically he does not look dehydrated otherwise. Encouraged him to continue to drink plenty of water. Says he has not slept well for most of his stay in the nursing facility. Agreeable for trial of melatonin. Still has Kat catheter in. Agreeable for voiding trial later today. Kat catheter was placed during hospitalization. No other acute concerns. Past medical history: Alcohol abuse Family [...] MANAGMENT SYSTEM; Surgeon: Vinod Valdes MD; Location: [facility]; Service: Orthopaedic ??? KNEE ASPIRATION 03/03/2022 Procedure: RIGHT KNEE ASPIRATION; Surgeon: Vinod Valdes MD; Location: [facility]; Service: Orthopaedic ??? KNEE SURGERY Review of Systems: A 14 point comprehensive review of systems was negative except what is documented in interval history above. Objective: Exam: Vital Signs: B/P: 153/85 Pulse: 90 Respirations: 17 Temperature: 98 General: Well developed, well nourished, [...] CBC is unremarkable. Imaging: None in the correction Assessment/Plan: Generalized weakness and deconditioning Receiving intermediate care and physical therapy rehabilitation Right femur [...] nothing acute. 03/08 - educated on gentle cjyko-hk-zjvuvu exercises as tolerated. Lightheadedness 03/05 - exam reassuring. Could be early dehydration versus uncontrolled pain versus other. Strongly encouraged oral hydration. Patient voiced understanding but I am not certain he is agreeable. 03/08 - resolved 03/12 - returned yesterday and blood pressure was low. Resolved today. Strongly encouraged oral hydration and he says he has not been doing very good at this. Urinary retention Kat catheter in place since hospitalization Likely attempt a voiding trial soon 03/15 - will attempt a voiding trial today Trouble sleeping 03/15 - started on low-dose scheduled melatonin Hyponatremia Patient was significantly hyponatremic with sodium of 124 on admission to hospital. Improved to 131at time of discharge with IV fluids. Monitor periodically. Secondary to alcohol abuse and dehydration. 03/08 - up to 133 on chemistry drawn 2 days ago. VTE Prophylaxis: Anticoagulated on Eliquis until 04/09 I discussed advanced care planning with this patient. This note was dictated using [employer] fluency dictation system and there may be errors in auto tech. Despite proof reading the note, there may be mistakes and I apologize for those. By: Richard Quispe, PAC, 03/15/2022 9:41 AM CDT documented in this encounter Plan of Treatment Not on file documented as of this encounter Visit Diagnoses Not on filedocumented in this encounter Care Teams Juvenile Justice Officer Relationship Specialty Start Date End Date Zaheer Forman MD [address] [place] [id number] PCP - General Family Medicine 03/02/22 Aruna Fenton MD [address] [address] Consulting Physician Urology 04/12/22 documented as of this encounter
--- OUTSIDE RECORDS SUMMARY | 2024-11-29 15:44 | XMS_ITS | Encounter Summary ---
Author Organization [facility] Address [address] [place] [address] Phone Care Team Providers Care Adoption Counselor Name Role Phone Zaheer Forman MD Primary Care Provider [phone] Aruna Fenton MD Unavailable [phone] Encounter Details Date Type Department Care Team (Late st Contact Info) Description 04/09/2022 Nursing Facility [facility] [address] [place] [phone] Richard Quispe, PAC [address] [place] [address] Social History Tobacco Use Types [...] suspected to have Coronavirus/COVID-19? No / Unsure 04/12/2022 1:46 PM CDT documented as of this encounter Progress Notes * Richard Quispe, PAC - 04/09/2022 2:35 PM CDT [facility] [place] [facility] PROGRESS NOTE Joshua Quick Jr. is a 66 y.o. male at [facility] for rehabilitation. Prior to coming to rehabilitation facility patient was hospitalized at [facility] fora right femur fracture. Had significant hyponatremia due to his alcohol abuse which improved with IV fluids. Subjective: Interval History: Patient says that he is feeling ???good?? . Was seen by Ortho and was clear for 25% weight-bearing and then 50% next week. Therapy is going well. Still has Kat catheter in. Not much urinary sediment. No signs or symptoms of infection. There was a urinalysis and off last week because of increased sediment, however the specimen was then labeled so has not resulted. He tells me that they just collected in her sample. No COVID-19 symptoms. Past medical history: Alcohol abuse Cigarette smoking [...] MANAGMENT SYSTEM; Surgeon: Vinod Valdes MD; Location: [facility]; Service: Orthopaedic ??? KNEE ASPIRATION 03/03/2022 Procedure: RIGHT KNEE ASPIRATION; Surgeon: Vinod Valdes MD; Location: [facility]; Service: Orthopaedic ??? KNEE SURGERY Review of [...] CBC is unremarkable. Imaging: None in the detention Assessment/Plan: Generalized weakness and deconditioning Receiving detention care and physical therapy rehabilitation Right femur fracture Status post ORIF on 03/[address] Valdes Wound VAC to stay on until cleared by Dr. Valdes P.r.n. pain medicines 03/19 - wound VAC removed. Incision site looks well. 04/09 - continues to improve. Cleared for 25% weight-bearing this week and is doing well. Acute COVID-19 infection 03/29 - diagnosed on 03/27. Paxlovid ordered yesterday. Mild symptoms currently. Beth Charles ordered to be scheduled for the next 1 week and then p.r.n. after that. Encouraged rest and hydration. 04/02 - stable 04/05 - better 04/09 - resolved Urinary retention Kat catheter in [...] nothing acute. 03/08 - educated on gentle hmnrv-bg-dlhsbi exercises as tolerated. 04/05 - better Lightheadedness [...] discussed advanced care planning with this patient. Disposition: 04/09 - should be discharging soon. Unknown when. There is actually an order for discharge in [facility] for today but the patient was unaware of this and has nothing in place. If he in the discharging before unable to see him again he understands to continue all his current medications, follow up with his PCP, orthopedic doctor and urologist at the end of the week. This note was dictated using [employer] fluency dictation system and there may be errors in senior recruiter. Despite proof reading the note, there may be mistakes and I apologize for those. By: JEANNA Alatorre, 04/09/2022 2:35 PM CDT documented in this encounter Plan of Treatment Not on file documented as of this encounter Visit Diagnoses Not on filedocumented in this encounter Care Teams Adoption Counselor Relationship Specialty Start Date End Date Zaheer Forman MD [address] [place] [address] PCP - General Family Medicine 03/02/22 Aruna Fenton MD [address] [address] Consulting Physician Urology 04/12/22 documented as of this encounter
--- OUTSIDE RECORDS SUMMARY | 2024-11-29 15:44 | XMS_ITS | Clinical Summary ---
Author Organization [facility] Address [address] [place] [address] Phone Care Team Providers Care Felt Coverer Name Role Phone Zaheer Forman MD Primary Care Provider [phone] Aruna Fenton MD Unavailable [phone] Allergies No known active allergies Medications Multiple Vitamin (MULTIVITAMIN PO) Take by mouth. Active folic acid (FOLVITE) 1 MG Tablet Take 1 Tablet by mouth daily. 30 Tablet 03/05/20 22 Active nicotine (NICODERM CQ) 21 MG/24HR PATCH 24 HR 1 Patch by Transdermal route daily as needed for Other (Nicotine dependency). 30 Patch 03/04/20 22 Active ondansetron (ZOFRAN-ODT) 4 MG TABLET DISPERSIBLE Take 1 Tablet by mouth every 6 hours as needed for Nausea - 1st line. 10 Tablet 03/04/20 22 Active oxyCODONE (ROXICODONE) 5 MG TabletIndications:Di splaced intertrochanteric fracture of right femur, initial encounter for closed fracture Take 1-2 Tablets by mouth every 4 hours as needed for Severe pain. 12 Tablet 03/04/20 22 Active polyethylene glycol (GLYCOLAX, MIRALAX) 17 g PackIndications:Cons tipation Take 1 Packet by mouth 2 times daily as needed for Constipation - 1st line. Dissolve in 4-8 oz of liquid. Indications: Constipation 90 Packet 03/04/20 22 Active senna (SENOKOT) 8.6 MG Tablet Take 1 Tablet by mouth daily. 30 Tablet 03/05/20 22 Active Thiamine Mononitrate (THIAMINE) 100 MG Tablet Take 1 Tablet by mouth daily. 30 Tablet 03/12/20 22 Active Active Problems Problem Noted Date Diagnosed Date Displaced intertrochanteric fracture of right femur, initial encounter for closed fracture 03/02/2022 Effusion of knee joint right 03/02/2022 Fall 03/02/2022 Alcohol abuse 03/02/2022 Hyponatremia 03/02/2022 Hypochloremia 03/02/2022 High anion gap metabolic acidosis 03/02/2022 Immunizations Immunization Administration Dates Next Due TDAP Vaccine 03/02/2022 Family History Medical History Relation Name Comments Diabetes Father Hypertension Sister Relation Name Status Comments Father Sister Social History Tobacco Use Types Packs/Day Years Used Date Smoking Tobacco: Every Day Cigarettes 1.5 40 Smokeless Tobacco: Never Tobacco Cessation:Ready to Q uit: No; Counseling Given: Yes Alcohol Use Standard Drinks/Week Comments Yes 50 (1 standard drink = 0.6 oz pure alcohol) daily intake of at least 10 beers Sexually Active Control Partners Comments Not Currently Sex and Gender Information Value Date Recorded Sex Assigned at Not on file Legal Sex Male 11:42 PM CDT Gender Identity Not on file Sexual Orientation Not on file Last Filed Vital Signs Vital Sign Reading Time Taken Comments Blood Pressure 124/82 05/10/2022 10:57 AM CDT Pulse 85 05/10/2022 10:57 AM CDT Temperature 36.4 C (97.5 F) 05/10/2022 10:57 AM CDT Respiratory Rate 20 05/10/2022 10:57 AM CDT Oxygen Saturation 95% 05/10/2022 10:57 AM CDT Inhaled Oxygen Concentration - - Weight 90.7 kg (200 lb) 05/10/2022 10:57 AM CDT Height 177.8 cm (5' 10 ) 05/10/2022 10:57 AM CDT Body Mass Index 28.7 05/10/2022 10:57 AM CDT Plan of Treatment Health Maintenance Due Date Last Done Comments Hepatitis C Virus (HCV) Screening 1955 Pneumococcal Immunization (5 0+ years) (1 of 2 - PCV) 1972 Colonoscopy 1998 Colorectal Cancer Screening 1998 Cologuard 2003 Immunochemical Fecal Occult Blood 2003 Zoster Immunization (1 of 2) 2003 Influenza Immunization (#1) 2024 SARS-COV-2 Immunization ( season) 2024 01/17/2022, 09/06/2021, 12/15/2020 Respiratory Syncytial Virus (RSV) Immunization (Adult) (1 - 1-dose 75+ series) 2028 DTaP/Tdap/Td Immunization Discontinued 03/02/2022 Hepatitis B Immunization Aged Out No longer eligible based on patient's age to complete this topic Meningococcal Immunization (ACWY) Aged Out No longer eligible based on patient's age to complete this topic Rotavirus Immunization Aged Out No lo nger eligible based on patient's age to complete this topic Medical Devices Implanted Type Area Netsuite Developer Device Identifier Shelf Expiration Date Model / Serial / Lot Screw Bone 10.5mm 95mm Gamma3 Ti Hip Trochanteric Lag Strl - [id number] Implanted:Qty: 1 on 03/03/2022 by Vinod Valdes MD at [facility] IMPLANT Right: Hip Neptune Trauma 04/24/2026 [id number] / [id number] / [id number] Nail 11mm 180mm Hip Trochanteric Gamma3 Im 125d Kit Ti Strl - [id number] Implanted:Qty: 1 on 03/03/2022 by Vinod Valdes MD at [facility] IMPLANT Right: Hip Celina Trauma 10/22/2026 [id number] / [id number] / [id number] Screw Bone 5mm 37.5mm T2 Ti Fthrd Femur Hum Tibia Prox Lock Strl Im Nail Sys - [id number] Implanted:Qty: 1 on 03/03/2022 by Vinod Valdes MD at [facility] IMPLANT Right: Hip [employer] 07/24/2025 [id number] S / [id number] / [id number] Insurance MEDICARE [facility] INS [facility] FIN vertical roll operator ATTN: [place] [address] Advance Directives * Full Code (Latest Code Status on File) Date Activated Date Inactivated Comments 03/02/2022 5:12 PM 03/04/2022 7:16 PM CPR-Full [place] tment: FULL ARREST: Attempt Resuscitation/CPR wit intubation and mechanical ventilation. PRE-ARREST: Use entire range of life support measures to stabilize the patient. Care Teams Felt Coverer Relationship Specialty Start Date End Date Zaheer Forman MD [address] [place] [id number] PCP - General Family Medicine 03/02/22 Aruna Fenton MD #2 [facility], [place] [address] [place] [address] Consulting Physician Urology 04/12/22
--- OUTSIDE RECORDS SUMMARY | 2024-11-29 15:44 | XMS_ITS | Encounter Summary ---
Author Organization [facility] Address [address] [facility] [place] [address] Phone Care Team Providers Care Dinking Machine Operator Name Role Phone Ede Durham MD Primary Care Provider [phone] Aruna Fenton MD Unavailable [phone] Encounter Details Date Type Department Care Team (Late st Contact Info) Description 04/12/2022 Nursing Facility [facility] [address] [place] [phone] Richard Quispe, PAC [address] [place] [address] Social History Tobacco Use Types [...] Progress Notes * Richard Quispe, PAC - 04/12/2022 11:57 AM CDT [facility] DIS[facility] SUMMARY Name: Joshua Quick Jr. Age: 66 y.o. : 1955 Attending Physician: No att. providers found Admission Date/Time: 03/04/22 Expected Discharge Date: 04/13/2022 Primary Care Physician: EDE DURHAM MD Discharging Provider: JEANNA Alatorre INSTRUCTIONS FOR PHYSICIANS ON FOLLOW UP AFTER DISCHARGE: Follow-up with PCP in 1-2 weeks. Follow-up with Ortho. Follow-up with urology her recommendations today. Complete 10 day course of Bactrim at home for urinary tract infection Discharge Instructions: Discharge Condition: improved Disposition: Home Diet: Cardiac Diet Activity: activity as tolerated Discharge Diagnoses: Generalized weakness and deconditioning, right femur fracture, hyponatremia, alcohol abuse, tobacco dependence, COVID-19 infection - recovered, urinary retention, urinary tract infection - active Admitting Diagnoses: Generalized weakness and deconditioning, right femur fracture, hyponatremia, alcohol abuse, tobacco dependence SKILLED CARE COURSE: Joshua Quick Jr. was admitted to senior care facility for acute care rehabilitation. Prior to coming to rehabilitation facility patient was hospitalized at [facility] for a right femur fracture. Had significant hyponatremia due to his alcohol abuse which improved with IV fluids. While in the nursing facility he received senior care and physical therapy rehabilitation. He did very well with this and at this point he has regained enough strength and ambulation that it is felt that he can be safely discharged home tomorrow. He was followed by Ortho while in the rehabilitation facility. There were few complications during his stay. He arrived to the facility with a urinary catheter inplace that was placed during his hospitalization. He failed the voiding trial so Kat catheter wasput back in and urology referral was placed. He has the urology appointment this afternoon. A urinalysis was obtained earlier this week because patient was complaining of increased sediment but no other symptoms. Urinalysis results just returned and is nitrite positive, urine culture pending. However considering the situation I am going to start him on a 10 day course of Bactrim DS today and I will follow up on his urine culture results on Friday. Discussed with nursing staff that he will need a new Kat catheter placed since he has a urinary tract infection, however will wait tell his urology appointment because highly likely they will attempt a voiding trial. But that is not the case stable put a new Kat catheter in this evening. Patient also caught COVID-19 shortly after arrival to the facility. He had mild symptoms which weretreated supportively. He did receive Paxlovid. Symptoms were never worse than mild and he is completely recovered this point. Today he is feeling ???fine?? . He denies any symptoms or concerns. He is happy to be able to be discharged tomorrow and continue his rehabilitation at home. He has stop smoking and does not plan to restart when he gets home. He did not drink alcohol while in the rehabilitation facility but says that he does plan on drinking beer when he gets home but much less than what he was. Exam Day of Discharge: Vital Signs: B/P: 132/76 Pulse: 90 Respirations: 17 Temperature: 97.3 General: Well developed, well nourished, in no [...] memory Genitourinary: Kat catheter in place Lab / Imaging Review: Lab Results: BMP on 03/03 in the hospital was remarkable for a sodium of 131, chloride 98 calcium 7.6. CBC on 03/04 remarkable for hemoglobin of 10.2, MCV 102 otherwise normal 03/06: Sodium of 133, calcium 7.8, rest of BMP is unremarkable. Hemoglobin 9.0, rest of CBC is unremarkable. Imaging: None in the shelter DISCHARGE PLAN: Patient will be discharging back home tomorrow. Home health for PT/OT and nursing will be ordered. Wheeled walker will be ordered. Understands to continue all current medications as directed and follow up with PCP in 1-2 weeks. He is to follow the urology recommendations that he will be receiving this afternoon. He is gettingprescribed 10 day course of Bactrim starting today for his acute urinary tract infection that he isto take without fail. I will follow- up on urine culture results on Friday. He is to also follow up with Ortho as scheduled. I have spent time coordinating care for this hospital discharge: Greater than 30 minutes spent in coordinating care This note was dictated using Elpas fluency dictation system and there may be errors in associate professor of library science. Despite proof reading the note, there may be mistakes and I apologize for those. Signed: Richard Quispe, PAC, 04/12/2022, 11:58 AM CDT documented in this encounter Plan of Treatment Not on file documented as of this encounter Visit Diagnoses Not on filedocumented in this encounter Care Teams Dinking Machine Operator Relationship Specialty Start Date End Date Ede Durham MD [address] [place] [id number] PCP - General Family Medicine 03/02/22 Aruna Fenton MD [address] [address] Consulting Physician Urology 04/12/22 documented as of this encounter
--- OUTSIDE RECORDS SUMMARY | 2024-11-29 15:44 | XMS_ITS | Encounter Summary ---
Author Organization [facility] Address [address] [place] [address] Phone Care Team Providers Care Bead Forming Machine Operator Name Role Phone Zaheer Forman MD Primary Care Provider [phone] Aruna Fenton MD Unavailable [phone] Encounter Details Date Type Department Care Team (Late st Contact Info) Description 03/19/2022 Nursing Facility [facility] [address] [place] [phone] Richard Quispe, PAC [address] [place] [address] Social History Tobacco Use Types [...] Progress Notes * Richard Quispe, PAC - 03/19/2022 12:11 PM CDT [facility] [place] ASSISTED PROGRESS NOTE Joshua Quick Jr. is a 66 y.o. male at [facility] for rehabilitation. Prior to coming to rehabilitation facility patient was hospitalized at [facility] fora right femur fracture. Had significant hyponatremia due to his alcohol abuse which improved with IV fluids. Subjective: Interval History: Patient saying that he feels ???okay?? . Saw his orthopedic surgeon yesterday and says that visit went well. X-rays looking as expected. Also had a steroid injection in his right knee and was given aright knee brace. Voiding trial was attempted on 03/15. Unfortunately patient failed. Patient unable to urinate after8 hours. Kat catheter was reinserted and he had 600 cc urinary output. He has no known prostate issues although does have nocturia about 2 times at baseline. Has never been seen by urologist. No other symptoms or concerns. Past medical history: Alcohol abuse Cigarette [...] MANAGMENT SYSTEM; Surgeon: Vinod Valdes MD; Location: [facility]; Service: Orthopaedic ??? KNEE ASPIRATION 03/03/2022 Procedure: RIGHT KNEE ASPIRATION; Surgeon: Vinod Valdes MD; Location: [facility]; Service: Orthopaedic ??? KNEE SURGERY Review of Systems: A 14 point comprehensive review of systems was negative except what is documented in interval history above. Objective: Exam: Vital Signs: B/P: 140/74 Pulse: 83 Respirations: 18 Temperature: 97.7 General: Well developed, well nourished, in no [...] CBC is unremarkable. Imaging: None in the group home Assessment/Plan: Generalized weakness and deconditioning Receiving half-way care and physical therapy rehabilitation Right femur [...] nothing acute. 03/08 - educated on gentle rhmzy-px-ctubdg exercises as tolerated. Lightheadedness 03/05 - exam [...] voiding trial. Urology referral placed. Trouble sleeping 03/15 - started on low-dose [...] this patient. This note was dictated using Nu3 fluency dictation system and there may be errors in training administrator. Despite proof reading the note, there may be mistakes and I apologize for those. By: Richard Quispe, PAC, 03/19/2022 12:11 PM CDT documented in this encounter Plan of Treatment Not on file documented as of this encounter Visit Diagnoses Not on filedocumented in this encounter Care Teams Bead Forming Machine Operator Relationship Specialty Start Date End Date Zaheer Forman MD [address] [place] [id number] PCP - General Family Medicine 03/02/22 Aruna Fenton MD #[address] [address] Consulting Physician Urology 04/12/22 documented as of this encounter
--- OUTSIDE RECORDS SUMMARY | 2024-11-29 15:44 | XMS_ITS | Encounter Summary ---
Author Organization [facility] Address [address] [place] [address] Phone Care Team Providers Care Preform Plate Maker Name Role Phone Zaheer Forman MD Primary Care Provider [phone] Aruna Fenton MD Unavailable [phone] Encounter Details Date Type Department Care Team (Late st Contact Info) Description 03/29/2022 Nursing Facility [facility] [address] [place] [phone] Richard Quispe, PAC [address] [place] [address] Social History Tobacco Use Types [...] Progress Notes * Richard Quispe, PAC - 03/29/2022 11:34 AM CDT [facility] PROGRESS NOTE Joshua Quick Jr. is a 66 y.o. male at [facility] for rehabilitation. Prior to coming to rehabilitation facility patient was hospitalized at [facility] fora right femur fracture. Had significant hyponatremia due to his alcohol abuse which improved with IV fluids. Subjective: Interval History: Patient tested positive for COVID-19 on 03/27. Says that since 03/25 he has had a cough that is largely nonproductive. Otherwise feeling okay. No shortness of breath or GI symptoms. He is vaccinated. He is agreeable to the paxlovid. Past medical history: Alcohol abuse Cigarette smoking [...] MANAGMENT SYSTEM; Surgeon: Vinod Valdes MD; Location: [facility]; Service: Orthopaedic ??? KNEE ASPIRATION 03/03/2022 Procedure: RIGHT KNEE ASPIRATION; Surgeon: Vinod Valdes MD; Location: [facility]; Service: Orthopaedic ??? KNEE SURGERY [...] CBC is unremarkable. Imaging: None in the halfway Assessment/Plan: Generalized weakness and deconditioning Receiving long-term care and physical therapy rehabilitation Right femur [...] p.r.n. after that. Encouraged rest and hydration. Alcohol abuse Drinks 10 beers a day Monitor for signs of withdrawal Continue thiamin and folate supplementation 03/15 - no withdrawal symptoms Right shoulder pain Since initial fall resulting in hip fracture. X-rays in hospital showing degenerative changes but nothing acute. 03/08 - educated on gentle mbzgj-mk-cizesy exercises as tolerated. Lightheadedness 03/05 - exam [...] this patient. This note was dictated using [employer] fluency dictation system and there may be errors in lab clerk. Despite proof reading the note, there may be mistakes and I apologize for those. By: JEANNA Alatorre, 03/29/2022 11:34 AM CDT documented in this encounter Plan of Treatment Not on file documented as of this encounter Visit Diagnoses Not on filedocumented in this encounter Care Teams Preform Plate Maker Relationship Specialty Start Date End Date Zhaeer Forman MD [address] [place] [id number] PCP - General Family Medicine 03/02/22 Aruna Fenton MD #[address] [address] Consulting Physician Urology 04/12/22 documented as of this encounter
--- OUTSIDE RECORDS SUMMARY | 2024-11-29 15:44 | XMS_ITS | Encounter Summary ---
Author Organization [facility] Address [address] [place] [address] Phone Care Team Providers Care Linux Vmware Administrator Name Role Phone Zaheer Forman MD Primary Care Provider [phone] Aruna Fenton MD Unavailable [phone] Encounter Details Date Type Department Care Team (Late st Contact Info) Description 03/05/2022 Nursing Facility [facility] [address] [place] [phone] Richard Quispe, PAC [address] [place] [address] Social History Tobacco Use Types [...] Progress Notes * Richard Quispe, PAC - 03/05/2022 10:44 AM CDT [facility] [place] PROGRESS NOTE Joshua Quick Jr. is a 66 y.o. male at [facility] for rehabilitation. Prior to coming to rehabilitation facility patient was hospitalized at [facility] for[facility] right femur fracture. Had significant hyponatremia due to his alcohol abuse which improved with IV fluids. Subjective: Interval History: Patient says that he is feeling ???lightheaded?? which started just a few minutes before I saw him. Says that if he leans for goes away. No vertigo type symptoms. No chest pain. He is not feeling anxious. No hallucinations. The urines catheter is very dark. He says he has not eaten or drank much since he came to the facility because he does not like the food in also is concerned about not being able to get to the bathroom in time when he has a bowel movement Past medical history: Alcohol abuse Family History [...] MANAGMENT SYSTEM; Surgeon: Vinod Valdes MD; Location: [facility]; Service: Orthopaedic ??? KNEE ASPIRATION 03/03/2022 Procedure: RIGHT KNEE ASPIRATION; Surgeon: Vinod Valdes MD; Location: [facility]; Service: Orthopaedic ??? KNEE SURGERY Review of Systems: A 14 point comprehensive review of systems was negative except what is documented in interval history above. Objective: Exam: Vital Signs: B/P: 139/87 Pulse: 88 Respirations: 20 Temperature: 97.6 General: Well developed, well nourished, [...] hemoglobin of 10.2, MCV 102 otherwise normal Imaging: None in the custodial Assessment/Plan: Generalized weakness and deconditioning Receiving correction care and physical therapy rehabilitation Right femur fracture Status post ORIF on 03/[address] Valdes Wound VAC to stay on until cleared by Dr. Valdes P.r.n. pain medicines Alcohol abuse Drinks 10 beers a day Monitor for signs of withdrawal Continue thiamin and folate supplementation CIWA protocol is not possible in this facility Lightheadedness 03/05 - exam reassuring. Could be early dehydration versus uncontrolled pain versus other. Strongly encouraged oral hydration. Patient voiced understanding but I am not certain he is agreeable. Urinary retention Kat catheter in place since hospitalization Likely attempt a voiding trial soon Hyponatremia Patient was significantly hyponatremic with sodium of 124 on admission to hospital. Improved to 131at time of discharge with IV fluids. Monitor periodically. Secondary to alcohol abuse and dehydration. VTE Prophylaxis: Anticoagulated on Eliquis until 04/09 I discussed advanced care planning with this patient. Advance Care Planning: Aggregate osbj-nl-vzvs time, greater than 16 minutes was spent discussing end-of-life care planning with patient/family and/or Power of Turning Machine Operator. Discussed CPR, Intubation, treatment goals, and Quality of life/Intensity of care. Patient desires CPR-Full Treatment This note was dictated using M*Modal fluency dictation system and there may be errors in screw machine tool setter. Despite proof reading the note, there may be mistakes and I apologize for those. By: JEANNA Alatorre, 03/05/2022 10:44 AM CDT documented in this encounter Plan of Treatment Not on file documented as of this encounter Visit Diagnoses Not on filedocumented in this encounter Care Teams Linux Vmware Administrator Relationship Specialty Start Date End Date Zaheer Forman MD [address] [place] [id number] PCP - General Family Medicine 03/02/22 Aruna Fenton MD #[address] [address] Consulting Physician Urology 04/12/22 documented as of this encounter
--- OUTSIDE RECORDS SUMMARY | 2024-11-29 15:44 | XMS_ITS | Clinical Summary ---
Author Organization [facility] Address [address] [place] [address] Care Team Providers Care Hide Sorter Name Role Phone Alexia Nicholson NP Primary Care Provider [phone] Social History Tobacco Use Types Packs/Day Years Used Date Smoking Tobacco: Never Assessed Sex and Gender Information Value Date Recorded Sex Assigned at Not on file Legal Sex Male 10:34 AM RETAIL MANAGEMENT TRAINEE Gender Identity Not on file Sexual Orientation Not on file Last Filed Vital Signs Vital Sign Reading Time Taken Comments Blood Pressure - - Pulse - - Temperature - - Respiratory Rate - - Oxygen Saturation - - Inhaled Oxygen Concentration - - Weight 93.4 kg (206 lb) 07/15/2024 10:21 AM RETAIL MANAGEMENT TRAINEE Height 177.8 cm (5' 10 ) 07/15/2024 10:21 AM RETAIL MANAGEMENT TRAINEE Body Mass Index 29.56 07/15/2024 10:21 AM RETAIL MANAGEMENT TRAINEE Plan of Treatment Health Maintenance Due Date Last Done Comments Colon Cancer Screening-Colonoscopy 1955 Depression Screening 1955 Fall Risk Assessment 1955 Hepatitis C Screening 1955 Hepatitis B Screening 1971 Pneumococcal vaccine 65+ (1 of 1 - PCV) 2003 Zoster Vaccine (1 of 2) 2003 Abdominal Aortic Aneurysm (A AA) Screen 2018 Well Visit 65+ 2018 Covid-19 Vaccine ( season) 2024 01/17/2022, 09/06/2021, 12/15/2020 Lung Cancer Screening 01/11/2025 07/15/2024 , 04/13/2024, 01/08/2024 Influenza Vaccine (Season Ended) 2025 DTaP/Tdap/Td Vaccine (2 - Td or Tdap) 03/02/203204/2022 Procedures Procedure Name Priority Date/Time Associated Diagnosis Comments CT CHEST WO CONTRAST F/U LUNG SCREEN PROTOCOL Schedule Routine, Read Routine (OP Routine) 07/15/2024 10:20 AM RETAIL MANAGEMENT TRAINEE Solitary pulmonary nodule from Last 3 Months or Most Recently Relevant to Health Maintenance Results * CT Chest WO Contrast F/U Lung Screen Protocol (07/15/2024 10:20 AM RETAIL MANAGEMENT TRAINEE) Anatomical Region Laterality Modality Chest N/A Computed Tomogra phy 07/20/2024 1:37 PM RETAIL MANAGEMENT TRAINEE Narrative 07/20/2024 2:15 PM RETAIL MANAGEMENT TRAINEE EXAM DESCRIPTION: CT CHEST WO CONTRAST F/U LUNG SCREEN PROTOCOL REASON FOR STUDY: Screening CT of the chest in a former smoker with a 40 pack year smoking history. Additional history: None. TECHNIQUE: Low dose CT scan of the chest was performed without intravenous contrast using helical scanning technique. The exam extends from the lung apices through the lung bases. Automatic exposure control was used as a dose optimization technique. NOTE: This study was performed for the specific purposes of lung cancer screening and is not an alternative to diagnostic chest CT. RADIATION DOSE: CT dose index volume (CTDIvol) = 2.13 mGy COMPARISON: Chest CT 04/13/2024 thyroid ultrasound 03/16/2024 FINDINGS: SMOKING RELATED LUNG DISEASE: Mild emphysema and bronchial wall thickening. LUNG NODULES: Numerous new small nodules in the right upper lobe measuring up to 4 mm on image 58. Additional numerous small nodules throughout the right lung are largely stable or have decreased in size. For example a 8 mm medial right lower lobe nodule, decreased from 1.1 cm prior, image 197. 4 mm right lower lobe nodule, prior 7 mm, image 247. CORONARY ARTERY CALCIFICATION: Three-vessel coronary artery calcification. OTHER: Trachea and large airways are patent. No consolidation. No pneumothorax or pleural effusion. Heart size is normal with no pericardial effusion. Atherosclerotic calcification of the aorta without aneurysm. No mediastinal, hilar, or axillary lymphadenopathy. Redemonstrated enlarged thyroid with mediastinal extension, see recent ultrasound. Hepatic steatosis. No suspicious osseous lesion. IMPRESSION: Numerous new small nodules in the right upper lobe measuring up to 4 mm, favor infectious/inflammatory. Additional small nodules throughout the right lung are largely stable or have decreased in size compared to 04/13/2024. Mild emphysema and bronchial wall thickening. Lung-RADS category 3: Probably benign. Recommendation: Low dose CT of chest in 6 months. THIS IS AN ELECTRONICALLY VERIFIED FINAL REPORT 07/20/2024 2:15 PM - Electronically signed by Jason Packer M.D. AG: AG Report ID: [id number] Reading Location: [place] [address] Alexia Nicholson NP IMG CT PROCEDURES Final Result from Last 3 Months or Most Recently Relevant to Health Maintenance Insurance MEDICARE [place] MEDICARE Care Teams Hide Sorter Relationship Specialty Start Date End Date Alexia Nicholson NP [address] [place] [address] PCP - General Nurse Practitioner 12/29/23
--- OUTSIDE RECORDS SUMMARY | 2024-11-29 15:44 | XMS_ITS | Encounter Summary ---
Author Organization [facility] Address [address] [place] [address] Phone Care Team Providers Care Potato Chip Sacking Machine Operator Name Role Phone Zaheer Forman MD Primary Care Provider [phone] Aruna Fenton MD Unavailable [phone] Encounter Details Date Type Department Care Team (Late st Contact Info) Description 03/22/2022 Nursing Facility [facility] [address] [place] [phone] Richard Quispe, PAC [address] [place] [address] Social History Tobacco Use Types [...] Progress Notes * Richard Quispe, PAC - 03/22/2022 12:22 PM CDT [facility] [place] [facility] PROGRESS NOTE Joshua Quick Jr. is a 66 y.o. male at [facility] for rehabilitation. Prior to coming to rehabilitation facility patient was hospitalized at [facility] fora right femur fracture. Had significant hyponatremia due to his alcohol abuse which improved with IV fluids. Subjective: Interval History: Patient saying that he feels ???good?? . Doing well with therapy. Cleared for 10% weight-bearing. Knee pain has improved since the steroid injection by his ortho surgeon and the brace is helping aswell. No other symptoms or concerns. Past medical [...] MANAGMENT SYSTEM; Surgeon: Vinod Valdes MD; Location: [facility]; Service: Orthopaedic ??? KNEE ASPIRATION 03/03/2022 Procedure: RIGHT KNEE ASPIRATION; Surgeon: Vinod Valdes MD; Location: [facility]; Service: Orthopaedic ??? KNEE SURGERY Review [...] CBC is unremarkable. Imaging: None in the assisted Assessment/Plan: Generalized weakness and deconditioning Receiving halfway care and physical therapy rehabilitation Right femur fracture Status post ORIF on 03/[address] Valdes Wound VAC to stay on until cleared by Dr. Valdes P.rTrevern. pain medicines 03/19 - wound VAC removed. Incision site looks well. Alcohol abuse Drinks 10 beers a day Monitor for signs of withdrawal Continue thiamin and folate supplementation 03/15 - no withdrawal symptoms Right shoulder pain Since initial fall resulting in hip fracture. X-rays in hospital showing degenerative changes but nothing acute. 03/08 - educated on gentle bogfr-ow-pcnppp exercises as tolerated. Lightheadedness 03/05 - exam [...] 03/15 - started on low-dose scheduled melatonin 03/22 - better Hyponatremia Patient was significantly hyponatremic with sodium [...] this patient. This note was dictated using [employer] fluency dictation system and there may be errors in market risk manager. Despite proof reading the note, there may be mistakes and I apologize for those. By: Richard Quispe, PAC, 03/22/2022 12:22 PM CDT documented in this encounter Plan of Treatment Not on file documented as of this encounter Visit Diagnoses Not on filedocumented in this encounter Care Teams Potato Chip Sacking Machine Operator Relationship Specialty Start Date End Date Zaheer Forman MD [address] [place] [address] PCP - General Family Medicine 03/02/22 Aruna Fenton MD [address] [address] Consulting Physician Urology 04/12/22 documented as of this encounter
--- OUTSIDE RECORDS SUMMARY | 2024-11-29 15:44 | XMS_ITS | Encounter Summary ---
Author Organization [facility] Address [address] [place] [address] Phone Care Team Providers Care Clipper Counters Name Role Phone Zaheer Forman MD Primary Care Provider [phone] Aruna Fenton MD Unavailable [phone] Encounter Details Date Type Department Care Team (Late st Contact Info) Description 03/12/2022 Nursing Facility [facility] [address] [place] [phone] Richard Quispe, PAC [address] [place] [address] Social History Tobacco Use Types [...] Progress Notes * Richard Quispe, PAC - 03/12/2022 4:17 PM CDT [facility] [place] HALFWAY PROGRESS NOTE Joshua Quick Jr. is a 66 y.o. male at [facility] for rehabilitation. Prior to coming to rehabilitation facility patient was hospitalized at [facility] fora right femur fracture. Had significant hyponatremia due to his alcohol abuse which improved with IV fluids. Subjective: Interval History: Today patient says he is feeling okay. Yesterday at the end of his rehab he was feeling lightheadedagain, the nurse checked his blood pressure and it was low at that time. He says he has not been doing a good job of keeping up with his hydration. Denies any GI symptoms. He did drink more water yesterday and today he is feeling better and his blood pressure is up today. No other acute concerns. Past medical history: [...] MANAGMENT SYSTEM; Surgeon: Vinod Valdes MD; Location: [facility]; Service: Orthopaedic ??? KNEE ASPIRATION 03/03/2022 Procedure: RIGHT KNEE ASPIRATION; Surgeon: Vinod Valdes MD; Location: [facility]; Service: Orthopaedic ??? KNEE SURGERY Review of Systems: A 14 point comprehensive review of systems was negative except what is documented in interval history above. Objective: Exam: Vital Signs: B/P: 153/85 Pulse: 93 Respirations: 18 Temperature: 97.6 General: Well developed, well nourished, [...] CBC is unremarkable. Imaging: None in the fpc Assessment/Plan: Generalized weakness and deconditioning Receiving senior living care and physical therapy rehabilitation Right femur [...] nothing acute. 03/08 - educated on gentle fecrm-za-jzxogu exercises as tolerated. Lightheadedness 03/05 - exam [...] this patient. This note was dictated using [employer] fluency dictation system and there may be errors in antique automobiles repairer. Despite proof reading the note, there may be mistakes and I apologize for those. By: Richard Quispe, PAC, 03/12/2022 4:18 PM CDT documented in this encounter Plan of Treatment Not on file documented as of this encounter Visit Diagnoses Not on filedocumented in this encounter Care Teams Clipper Counters Relationship Specialty Start Date End Date Zaheer Forman MD [address] [place] [id number] PCP - General Family Medicine 03/02/22 Aruna Fenton MD [address] [address] Consulting Physician Urology 04/12/22 documented as of this encounter
--- OUTSIDE RECORDS SUMMARY | 2024-11-29 15:44 | XMS_ITS | Referral Summary ---
Author Organization [facility] Address [address] [place] [address] Care Team Providers Care Industrial Truck Driver Name Role Phone Alexia Nicholson NP Primary Care Provider [phone] Social History Tobacco Use Types Packs/Day Years Used Date Smoking Tobacco: Never Assessed Sex and Gender Information Value Date Recorded Sex Assigned at Not on file Legal Sex Male 10:34 AM CASH SALES AUDIT CLERK Gender Identity Not on file Sexual Orientation Not on file Last Filed Vital Signs Vital Sign Reading Time Taken Comments Blood Pressure - - Pulse - - Temperature - - Respiratory Rate - - Oxygen Saturation - - Inhaled Oxygen Concentration - - Weight 93.4 kg (206 lb) 07/15/2024 10:21 AM CASH SALES AUDIT CLERK Height 177.8 cm (5' 10 ) 07/15/2024 10:21 AM CASH SALES AUDIT CLERK Body Mass Index 29.56 07/15/2024 10:21 AM CASH SALES AUDIT CLERK Plan of Treatment Not on file Procedures Procedure Name Priority Date/Time Associated Diagnosis Comments CT CHEST WO CONTRAST F/U LUNG SCREEN PROTOCOL Schedule Routine, Read Routine (OP Routine) 07/15/2024 10:20 AM CASH SALES AUDIT CLERK Solitary pulmonary nodule from Last 3 Months or Most Recently Relevant to Health Maintenance Results * CT Chest WO Contrast F/U Lung Screen Protocol (07/15/2024 10:20 AM CASH SALES AUDIT CLERK) Anatomical Region Laterality Modality Chest N/A Computed Tomogra phy 07/20/2024 1:37 PM CASH SALES AUDIT CLERK Narrative 07/20/2024 2:15 PM CASH SALES AUDIT CLERK EXAM DESCRIPTION: CT CHEST WO CONTRAST F/U [...] Electronically signed by Jason Packer M.D. AG: ZARINA Report ID: [id number] Reading Location: [id number] Alexia Nicholson NP IMNeli CT PROCEDURES Final Result from Last 3 Months or Most Recently Relevant to Health Maintenance Insurance MEDICARE [employer] MEDICARE Care Teams Industrial Truck Driver Relationship Specialty Start Date End Date Alexia Nicholson NP [address] [place] [address] PCP - General Nurse Practitioner 12/29/23
[2024-11-29 20:07] LABS: Basophils Absolute Auto 0.1 K/mm3 (0.0-0.1); Eosinophils Absolute Auto 0.1 K/mm3 (0-0.3); Eosinophils Percent Auto 0.7 % (0-4.4); Hematocrit 36.5 % (42.0-52.0); Hemoglobin 12.6 g/dL (14.0-18.0); Immature Granulocyte Absolute 0.04 K/mm3 (0.00-0.031); Immature Granulocyte Percent A 0.4 % (0-0.5); Lymphocytes Absolute Auto 0.91 K/mm3 (0.9-3.2); Mean Corpuscular HGB Conc 34.5 g/dl (32-36); Mean Corpuscular Hemoglobin 36.5 pg (26-34); Mean Corpuscular Volume 105.8 fl (80-100); Mean Platelet Volume 9.2 fl (7.4-10.4); Monocytes Absolute Auto 0.6 K/mm3 (0.1-0.6); Monocytes Percent Auto 7.1 % (2.6-8.5); Neutrophils Absolute Auto 7.3 K/mm3 (1.3-6.7); Neutrophils Percent Auto 80.8 % (45.5-73.1); Platelet Count Result 375 k/mm3 (150-375); Red Blood Count 3.45 M/mm3 (4.6-6.20); Red Cell Distribution Width 12.6 % (11.5-14.5); White Blood Count 9.1 K/mm3 (4.5-10.0)
[2024-11-29 20:15] LABS: Alanine Aminotransferase 23 U/L (6-50); Albumin Level 4.2 g/dL (3.5-5.1); Alkaline Phosphatase 136 U/L (38-126); Anion Gap 13 mmol/L (4-12); Aspartate Amino Transferase 53 U/L (17-59); Blood Urea Nitrogen 12 mg/dL (9-20); Calcium 9.1 mg/dL (8.4-10.2); Carbon Dioxide 24 mmol/L (22-30); Chloride 93 mmol/L (98-107); Estimated Glomerular Filt Rate > 60; Glucose 96 mg/dL (65-110); Potassium 4.8 mmol/L (3.4-5.0); Sodium 130 mmol/L (137-145)
[2024-11-29 20:30] LABS: Band Neutrophils Percent 0 % (0-6); Macrocytosis 1+ (NORMAL); Platelet Estimate Adequate (Adequate); Schistocytes None Seen
== END 2024-11-29 13:44 | disposition home or self-care (01) ==
PROVIDERS: PCP Nurse Practitioner Adult Health; Visit Provider Nurse Practitioner Adult Health
DX: R53.1 Weakness (principal); M25.551 Pain in right hip
CPT/HCPCS: 36415; 71046; 73502; 80053; 85025

== ENCOUNTER 2025-01-03 11:51 | Outpatient (CLI) | payer MEDICARE, SELFPAY ==
--- NOTE | ~2025-01-03 | XR_ITS ---
Left Shoulder Technique: AP and scapular Y views were obtained. Clinical History: Pain Findings: No fracture or dislocation is seen. Osseous alignment is anatomic. The glenohumeral joint i s intact. 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 Soft tissues are unremarkable. Impression: Khva-kn-valohdqx AC joint degenerative change. Reviewed, dictated and finalized at location . Impression: Rhtk-oq-vcbcdwxo AC joint degenerative change.
--- OUTSIDE RECORDS SUMMARY | 2025-01-03 11:56 | XMS_ITS | Referral Summary ---
Author Organization [facility] Address [address] [place] [address] Care Team Providers Care Nonprofit Manager Name Role Phone Alexia Nicholson LENIN Primary Care Provider [phone] Bertha Morris PT Unavailable Unavailabl e Encounters Date Type Department Care Team Description 12/28/2024 Plan of Care Documentation [facility] [address] [place] [address] 12/27/2024 1:45 PM CDT Therapy [facility] [address] [place] [address] Bertha Morris, PT Other reduced mobility (Primary Dx); Weakness from Last 3 Months Allergies No known active allergies Medications No known medications Active Problems No known active problems Social History Tobacco Use Types Packs/Day Years Used Date Smoking Tobacco: Never Assessed Sex and Gender Information Value Date Recorded Sex Assigned at Not on file Legal Sex Male 10:34 AM PLC CONTROLS ENGINEER Gender Identity Not on file Sexual Orientation Not on file Last Filed Vital Signs Vital Sign Reading Time Taken Comments Blood Pressure - - Pulse - - Temperature - - Respiratory Rate - - Oxygen Saturation - - Inhaled Oxygen Concentration - - Weight 93.4 kg (206 lb) 07/15/2024 10:21 AM PLC CONTROLS ENGINEER Height 177.8 cm (5' 10 ) 07/15/2024 10:21 AM PLC CONTROLS ENGINEER Body Mass Index 29.56 07/15/2024 10:21 AM PLC CONTROLS ENGINEER Plan of Treatment Not on file Procedures Procedure Name Priority Date/Time Associated Diagnosis Comments CT CHEST WO CONTRAST F/U LUNG SCREEN PROTOCOL Schedule Routine, Read Routine (OP Routine) 07/15/2024 10:20 AM PLC CONTROLS ENGINEER Solitary pulmonary nodule from Last 3 Months or Most Recently Relevant to Health Maintenance Results * CT Chest WO Contrast F/U Lung Screen Protocol (07/15/2024 10:20 AM PLC CONTROLS ENGINEER) Anatomical Region Laterality Modality Chest N/A Computed Tomogra phy 07/20/2024 1:37 PM PLC CONTROLS ENGINEER Narrative 07/20/2024 2:15 PM PLC CONTROLS ENGINEER EXAM DESCRIPTION: CT CHEST WO CONTRAST F/U [...] Jason Packer M.D. AG: ZARINA Report ID: [id number] Reading Location: [place] [address] Alexia Nicholson NP IMG CT PROCEDURES Final Result from Last 3 Months or Most Recently Relevant to Health Maintenance Insurance [place] [address] MEDICARE Care Teams Nonprofit Manager Relationship Specialty Start Date End Date Alexia Nicholson NP [address] [place] [address] PCP - General Nurse Practitioner 12/29/23 Bertha Morris, PT Physical Therapist Physical Therapy 12/27/24
--- OUTSIDE RECORDS SUMMARY | 2025-01-03 11:56 | XMS_ITS | Encounter Summary ---
Author Organization [facility] Address [address] [place] [address] Phone Care Team Providers Care Clerical Receptionist Name Role Phone Zaheer Forman MD Primary Care Provider [phone] Aruna Fenton MD Unavailable [phone] Encounter Details Date Type Department Care Team (Late st Contact Info) Description 03/22/2022 Nursing Facility [facility] [address] [place] [phone] Richard Quispe, PAC [address] [place] [address] Social History Tobacco Use Types [...] - 03/22/2022 12:22 PM CDT [facility] [place] [facility] PROGRESS NOTE Joshua Quick Jr. is a 66 y.o. male at [facility] for rehabilitation. Prior to coming to rehabilitation facility patient was hospitalized at [facility] fora right femur fracture. Had [...] MANAGMENT SYSTEM; Surgeon: Vinod Valdes MD; Location: [facility]; Service: Orthopaedic ??? KNEE ASPIRATION 03/03/2022 Procedure: RIGHT KNEE ASPIRATION; Surgeon: Vinod Valdes MD; Location: [facility]; Service: Orthopaedic ??? KNEE SURGERY Review of [...] CBC is unremarkable. Imaging: None in the usp Assessment/Plan: Generalized weakness and deconditioning Receiving [facility] care and physical therapy rehabilitation Right femur [...] nothing acute. 03/08 - educated on gentle hrmir-nn-zutncl exercises as tolerated. Lightheadedness 03/05 - exam [...] this patient. This note was dictated using [employer] fluency dictation system and there may be errors in tax services manager. Despite proof reading the note, there may be mistakes and I apologize for those. By: Richard Quispe, PAC, 03/22/2022 12:22 PM CDT documented in this encounter Plan of Treatment Not on file documented as of this encounter Visit Diagnoses Not on filedocumented in this encounter Care Teams Clerical Receptionist Relationship Specialty Start Date End Date Zaheer Forman MD [address] [place] [address] PCP - General Family Medicine 03/02/22 Aruna Fenton MD #[address] [address] Consulting Physician Urology 04/12/22 documented as of this encounter
--- OUTSIDE RECORDS SUMMARY | 2025-01-03 11:56 | XMS_ITS | Encounter Summary ---
Author Organization [facility] Address [address] [place] [address] Phone Care Team Providers Care Power Electronics Engineer Name Role Phone Zaheer Forman MD Primary Care Provider [phone] Aruna Fenton MD Unavailable [phone] Encounter Details Date Type Department Care Team (Late st Contact Info) Description 04/05/2022 Nursing Facility [facility] [address] [place] [phone] Richard Quispe, PAC [address] [place] [address] Social History Tobacco Use Types [...] - 04/05/2022 11:55 AM CDT [facility] [place] DETENTION PROGRESS NOTE Joshua Quick Jr. is a 66 y.o. male at [facility] for rehabilitation. Prior to coming to [...] MANAGMENT SYSTEM; Surgeon: Vinod Valdes MD; Location: [facility]; Service: Orthopaedic ??? KNEE ASPIRATION 03/03/2022 Procedure: RIGHT KNEE ASPIRATION; Surgeon: Vinod Valdes MD; Location: [facility]; Service: Orthopaedic ??? KNEE SURGERY [...] CBC is unremarkable. Imaging: None in the senior care Assessment/Plan: Generalized weakness and deconditioning Receiving half-way [...] nothing acute. 03/08 - educated on gentle dyvpz-jc-hqglfu exercises as tolerated. 04/05 - better Lightheadedness [...] this patient. This note was dictated using [employer] fluency dictation system and there may be errors in risk analyst. Despite proof reading the note, there may be mistakes and I apologize for those. By: JEANNA Alatorre, 04/05/2022 11:55 AM CDT documented in this encounter Plan of Treatment Not on file documented as of this encounter Visit Diagnoses Not on filedocumented in this encounter Care Teams Power Electronics Engineer Relationship Specialty Start Date End Date Zaheer Forman MD [address] [place] [address] PCP - General Family Medicine 03/02/22 Aruna Fenton MD [address] [address] Consulting Physician Urology 04/12/22 documented as of this encounter
--- OUTSIDE RECORDS SUMMARY | 2025-01-03 11:56 | XMS_ITS | Encounter Summary ---
Author Organization [facility] Address [address] [facility] [place] [address] Phone Care Team Providers Care Clinical Laboratory Assistant Name Role Phone Ede Durham MD Primary Care Provider [phone] Aruna Fenton MD Unavailable [phone] Encounter Details Date Type Department Care Team (Late st Contact Info) Description 04/12/2022 Nursing Facility [facility] [address] [place] [phone] Richard Quispe, PAC [address] [place] [address] Social History Tobacco Use Types [...] Quispe, PAC - 04/12/2022 11:57 AM CDT [facility] DISCHARGE SUMMARY Name: Joshua Quick Jr. Age: [...] COURSE: Joshua Quick Jr. was admitted to [facility] facility for acute care rehabilitation. Prior to coming to rehabilitation facility patient was hospitalized at [facility] for a right femur fracture. Had significant hyponatremia due to his alcohol abuse which improved with IV fluids. While in the nursing facility he received fpc and physical therapy rehabilitation. He did very [...] CBC is unremarkable. Imaging: None in the fci DISCHARGE PLAN: Patient will be discharging back [...] coordinating care This note was dictated using [employer] fluency dictation system and there may be errors in skills instructor. Despite proof reading the note, there may be mistakes and I apologize for those. Signed: Richard Quispe, PAC, 04/12/2022, 11:58 AM CDT documented in this encounter Plan of Treatment Not on file documented as of this encounter Visit Diagnoses Not on filedocumented in this encounter Care Teams Clinical Laboratory Assistant Relationship Specialty Start Date End Date Ede Durham MD [address] [place] [address] PCP - General Family Medicine 03/02/22 Aruna Fenton MD [address] [address] Consulting Physician Urology 04/12/22 documented as of this encounter
--- OUTSIDE RECORDS SUMMARY | 2025-01-03 11:56 | XMS_ITS | Encounter Summary ---
Author Organization [facility] Address [address] [place] [address] Phone Care Team Providers Care Landscape Photographer Name Role Phone Zaheer Forman MD Primary Care Provider Aruna Fenton MD Unavailable [phone] Encounter Details Date Type Department Care Team (Late st Contact Info) Description 03/15/2022 Nursing Facility [facility] [address] [place] [phone] Richard Quispe, PAC [address] [place] [address] Social History Tobacco Use Types [...] - 03/15/2022 9:40 AM CDT [facility] [place] LONG[facility]M PROGRESS NOTE Joshua Quick Jr. is a 66 y.o. male at [facility] for rehabilitation. Prior to coming to rehabilitation facility patient was hospitalized at [facility] fora right femur fracture. Had [...] MANAGMENT SYSTEM; Surgeon: Vinod Valdes MD; Location: [facility]; Service: Orthopaedic ??? KNEE ASPIRATION 03/03/2022 Procedure: RIGHT KNEE ASPIRATION; Surgeon: Vinod Valdes MD; Location: [facility]; Service: Orthopaedic ??? KNEE SURGERY Review of [...] home Assessment/Plan: Generalized weakness and deconditioning Receiving intermediate [...] nothing acute. 03/08 - educated on gentle rhmdb-ih-hcvyes exercises as tolerated. Lightheadedness 03/05 - exam [...] this patient. This note was dictated using [employer] fluency dictation system and there may be errors in plier worker. Despite proof reading the note, there may be mistakes and I apologize for those. By: Richard Quispe, PAC, 03/15/2022 9:41 AM CDT documented in this encounter Plan of Treatment Not on file documented as of this encounter Visit Diagnoses Not on filedocumented in this encounter Care Teams Landscape Photographer Relationship Specialty Start Date End Date Zaheer Forman MD [address] [place] [address] PCP - General Family Medicine 03/02/22 Aruna Fenton MD #[address] [address] Consulting Physician Urology 04/12/22 documented as of this encounter
--- OUTSIDE RECORDS SUMMARY | 2025-01-03 11:56 | XMS_ITS | Encounter Summary ---
Author Organization [facility] Address [address] [place] [address] Phone Care Team Providers Care Billposting Supervisor Name Role Phone Zaheer Forman MD Primary Care Provider [phone] Aruna Fenton MD Unavailable [phone] Encounter Details Date Type Department Care Team (Late st Contact Info) Description 03/12/2022 Nursing Facility [facility] [address] [place] [phone] Richard Quispe, PAC [address] [place] [address] Social History Tobacco Use Types [...] - 03/12/2022 4:17 PM CDT [facility] [place] HALFW[facility] PROGRESS NOTE Joshua Quick Jr. is a 66 y.o. male at [facility] for rehabilitation. Prior to coming to rehabilitation facility patient was hospitalized at [facility] fora right femur fracture. Had significant [...] MANAGMENT SYSTEM; Surgeon: Vinod Valdes MD; Location: [facility]; Service: Orthopaedic ??? KNEE ASPIRATION 03/03/2022 Procedure: RIGHT KNEE ASPIRATION; Surgeon: Vinod Valdes MD; Location: [facility]; Service: Orthopaedic ??? KNEE SURGERY [...] usp Assessment/Plan: Generalized weakness and deconditioning Receiving fci care and physical therapy rehabilitation Right femur [...] nothing acute. 03/08 - educated on gentle txuhp-zi-vnopal exercises as tolerated. Lightheadedness 03/05 - exam [...] this patient. This note was dictated using [employer] fluency dictation system and there may be errors in shot polisher. Despite proof reading the note, there may be mistakes and I apologize for those. By: Richard Quispe, PAC, 03/12/2022 4:18 PM CDT documented in this encounter Plan of Treatment Not on file documented as of this encounter Visit Diagnoses Not on filedocumented in this encounter Care Teams Billposting Supervisor Relationship Specialty Start Date End Date Zaheer Forman MD [address] [place] [address] PCP - General Family Medicine 03/02/22 Aruna Fenton MD #[address] [address] Consulting Physician Urology 04/12/22 documented as of this encounter
--- OUTSIDE RECORDS SUMMARY | 2025-01-03 11:56 | XMS_ITS | Encounter Summary ---
Author Organization [facility] Address [address] [place] [address] Phone Care Team Providers Care Animal Daycare Provider Name Role Phone Zaheer Forman MD Primary Care Provider [phone] Aruna Fenton MD Unavailable [phone] Encounter Details Date Type Department Care Team (Late st Contact Info) Description 04/02/2022 Nursing Facility [facility]AY [facility] [address] [place] [phone] Richard Quispe, PAC [address] [place] [address] Social History Tobacco Use Types [...] - 04/02/2022 4:06 PM CDT [facility] [place] CUSTODIAL PROGRESS NOTE Joshua Quick Jr. is a 66 y.o. male at [facility] for rehabilitation. Prior to coming to rehabilitation facility patient was hospitalized at [facility] fora right femur fracture. [...] KNEE ASPIRATION; Surgeon: Vinod Valdes MD; Location: [facility]; Service: Orthopaedic ??? KNEE SURGERY Review of [...] correction Assessment/Plan: Generalized weakness and deconditioning Receiving nursing home care and physical therapy rehabilitation Right [...] nothing acute. 03/08 - educated on gentle maikd-nv-jcckbf exercises as tolerated. Lightheadedness 03/05 - exam [...] this patient. This note was dictated using [employer] fluency dictation system and there may be errors in remarketing manager. Despite proof reading the note, there may be mistakes and I apologize for those. By: JEANNA Alatorre, 04/02/2022 4:07 PM CDT documented in this encounter Plan of Treatment Not on file documented as of this encounter Visit Diagnoses Not on filedocumented in this encounter Care Teams Animal Daycare Provider Relationship Specialty Start Date End Date Zaheer Forman MD [address] [place] [address] PCP - General Family Medicine 03/02/22 Aruna Fenton MD [address] [address] Consulting Physician Urology 04/12/22 documented as of this encounter
--- OUTSIDE RECORDS SUMMARY | 2025-01-03 11:56 | XMS_ITS | Clinical Summary ---
Author Organization [facility] Address [address] [place] [address] Phone Care Team Providers Care Sample Prep Technician Name Role Phone Zaheer Forman MD Primary Care Provider [phone] Aruna Fenton MD Unavailable [phone] Allergies No known active allergies Medications Multiple [...] this topic Medical Devices Implanted Type Area Bakery Team Member Device Identifier Shelf Expiration Date Model / Serial / Lot Screw Bone 10.5mm 95mm Gamma3 Ti Hip Trochanteric Lag Strl - [id number] Implanted:Qty: 1 on 03/03/2022 by Vinod Valdes MD at [facility] IMPLANT Right: Hip [employer] 04/24/2026 [id number] S / [id number] / [id number] Nail 11mm 180mm Hip Trochanteric Gamma3 Im 125d Kit Ti Strl - [id number] Implanted:Qty: 1 on 03/03/2022 by Vinod Valdes MD at [facility] IMPLANT Right: Hip [employer] 10/22/2026 [id number] S / [id number] / [id number] Screw Bone 5mm 37.5mm T2 Ti Fthrd Femur Hum Tibia Prox Lock Strl Im Nail Sys - [id number] Implanted:Qty: 1 on 03/03/2022 by Vinod Valdes MD at [facility] IMPLANT Right: Hip [place] [employer] 07/24/2025 [id number] S / [id number] / [id number] Insurance MEDICARE Member Subscriber Plan / Payer (Ef fective 2018-Present) Name:Joshua Quick Jr. Member ID:[id number] Relation to Subscriber:Self Name:Joshua Quick Jr. Subscriber ID:[id number] Payer ID:[id number] Group ID:Not on file Type:Not on file Address: [facility] [address] [facility] [employer] [facility] [place] [phone] [facility] [employer] [facility] [employer] document management specialist ATTN: [place] [address] Advance Directives * Full Code (Latest Code Status on File) Date Activated Date Inactivated Comments 03/02/2022 5:12 PM 03/04/2022 7:16 PM CPR-Full [place] tment: FULL ARREST: Attempt Resuscitation/CPR wit intubation and mechanical ventilation. PRE-ARREST: Use entire range of life support measures to stabilize the patient. Care Teams Sample Prep Technician Relationship Specialty Start Date End Date Zaheer Forman MD [address] [place] [address] PCP - General Family Medicine 03/02/22 Aruna Fenton MD [address]2 [facility], [facility] [address] [place] [address] Consulting Physician Urology 04/12/22
--- OUTSIDE RECORDS SUMMARY | 2025-01-03 11:56 | XMS_ITS | Encounter Summary ---
Author Organization [facility] Address [address] [place] [address] Phone Care Team Providers Care Cylinder Grinder Name Role Phone Zaheer Forman MD Primary Care Provider [phone] Aruna Fenton MD Unavailable [phone] Encounter Details Date Type Department Care Team (Late st Contact Info) Description 03/08/2022 Nursing Facility [facility] [address] [place] [phone] Richard Quispe, PAC [address] [place] [address] Social History Tobacco Use Types [...] - 03/08/2022 12:03 PM CDT [facility] [place] [facility] PROGRESS NOTE Joshua Quick Jr. is a 66 y.o. male at [facility] for rehabilitation. Prior to coming to rehabilitation facility patient was hospitalized at [facility] fora right femur fracture. Had significant [...] MANAGMENT SYSTEM; Surgeon: Vinod Valdes MD; Location: [facility]; Service: Orthopaedic ??? KNEE ASPIRATION 03/03/2022 Procedure: RIGHT KNEE ASPIRATION; Surgeon: Vinod Valdes MD; Location: [facility]; Service: Orthopaedic ??? KNEE SURGERY [...] is unremarkable. Imaging: None in the shelter Assessment/Plan: Generalized weakness and deconditioning Receiving [facility] care and physical therapy rehabilitation Right femur [...] nothing acute. 03/08 - educated on gentle jvklz-ib-evyypv exercises as tolerated. Lightheadedness 03/05 - exam [...] system and there may be errors in platen press operator apprentice. Despite proof reading the note, there may be mistakes and I apologize for those. By: Richard Quispe, PAC, 03/08/2022 12:03 PM CDT documented in this encounter Plan of Treatment Not on file documented as of this encounter Visit Diagnoses Not on filedocumented in this encounter Care Teams Cylinder Grinder Relationship Specialty Start Date End Date Zaheer Forman MD [address] [place] [address] PCP - General Family Medicine 03/02/22 Aruna Fenton MD #[address] [address] Consulting Physician Urology 04/12/22 documented as of this encounter
--- OUTSIDE RECORDS SUMMARY | 2025-01-03 11:56 | XMS_ITS | Encounter Summary ---
Author Organization [facility] Address [address] [place] [address] Phone Care Team Providers Care Accounting Lecturer Name Role Phone Zaheer Forman MD Primary Care Provider [phone] Aruna Fenton MD Unavailable [phone] Encounter Details Date Type Department Care Team (Late st Contact Info) Description 03/26/2022 Nursing Facility [facility] [address] [place] [phone] Richard Quispe, PAC [address] [place] [address] Social History Tobacco Use Types [...] - 03/26/2022 3:13 PM CDT [facility] [place] [facility] PROGRESS NOTE Joshua Quick Jr. is a 66 y.o. male at [facility] for rehabilitation. Prior to coming to rehabilitation facility patient was hospitalized at [facility] fora right femur fracture. Had significant [...] MANAGMENT SYSTEM; Surgeon: Vinod Valdes MD; Location: [facility]; Service: Orthopaedic ??? KNEE ASPIRATION 03/03/2022 Procedure: RIGHT KNEE ASPIRATION; Surgeon: Vinod Valdes MD; Location: [facility]; Service: Orthopaedic ??? KNEE SURGERY Review of [...] CBC is unremarkable. Imaging: None in the long term Assessment/Plan: Generalized weakness and deconditioning Receiving senior [...] nothing acute. 03/08 - educated on gentle zqfyj-qk-vqydrm exercises as tolerated. Lightheadedness 03/05 - exam [...] this patient. This note was dictated using [employer]*Patient [employer]versation [employer] fluency dictation system and there may be errors in manager forms. Despite proof reading the note, there may be mistakes and I apologize for those. By: Richard Quispe, PAC, 03/26/2022 3:13 PM CDT documented in this encounter Plan of Treatment Not on file documented as of this encounter Visit Diagnoses Not on filedocumented in this encounter Care Teams Accounting Lecturer Relationship Specialty Start Date End Date Zaheer Forman MD [address] [place] [address] PCP - General Family Medicine 03/02/22 Aruna Fenton MD [address] [address] Consulting Physician Urology 04/12/22 documented as of this encounter
--- OUTSIDE RECORDS SUMMARY | 2025-01-03 11:56 | XMS_ITS | Encounter Summary ---
Author Organization [facility] Address [address] [place] [address] Phone Care Team Providers Care Piano Technician Name Role Phone Zaheer Forman MD Primary Care Provider [phone] Aruna Fenton MD Unavailable [phone] Encounter Details Date Type Department Care Team (Late st Contact Info) Description 03/19/2022 Nursing Facility [facility] [address] [place] [phone] Richard Quispe, PAC [address] [place] [address] Social History Tobacco Use Types [...] - 03/19/2022 12:11 PM CDT [facility] [place] HALFWAY PROGRESS NOTE Joshua Quick Jr. is a 66 y.o. male at [facility] for rehabilitation. Prior to coming to rehabilitation facility patient was hospitalized at [facility] fora right femur fracture. Had significant [...] Vinod Valdes MD; Location: [facility]; Service: Orthopaedic ??? KNEE [...] correction Assessment/Plan: Generalized weakness and deconditioning Receiving fpc [...] nothing acute. 03/08 - educated on gentle stjgv-vr-cwlsdd exercises as tolerated. Lightheadedness 03/05 - exam [...] this patient. This note was dictated using [email or web address] fluency dictation system and there may be errors in dairy associate. Despite proof reading the note, there may be mistakes and I apologize for those. By: Richard Qusipe, PAC, 03/19/2022 12:11 PM CDT documented in this encounter Plan of Treatment Not on file documented as of this encounter Visit Diagnoses Not on filedocumented in this encounter Care Teams Piano Technician Relationship Specialty Start Date End Date Zaheer Forman MD [address] [place] [address] PCP - General Family Medicine 03/02/22 Aruna Fenton MD #[address] [address] Consulting Physician Urology 04/12/22 documented as of this encounter
--- OUTSIDE RECORDS SUMMARY | 2025-01-03 11:56 | XMS_ITS | Encounter Summary ---
Author Organization [facility] Address [address] [place] [address] Phone Care Team Providers Care Guard Immigration Name Role Phone Zaheer Forman MD Primary Care Provider [phone] Aruna Fenton MD Unavailable [phone] Encounter Details Date Type Department Care Team (Late st Contact Info) Description 03/05/2022 Nursing Facility [facility] [address] [place] [phone] Richard Quispe, PAC [address] [place] [address] Social History Tobacco Use Types [...] - 03/05/2022 10:44 AM CDT [facility] OF [place] CORRECTION PROGRESS NOTE Joshua Quick Jr. is a 66 y.o. male at [facility] for rehabilitation. Prior to coming to rehabilitation facility patient was hospitalized at [facility] fora right femur fracture. [...] MANAGMENT SYSTEM; Surgeon: Vinod Valdes MD; Location: [facility]; Service: Orthopaedic ??? KNEE ASPIRATION 03/03/2022 Procedure: RIGHT KNEE ASPIRATION; Surgeon: Vinod Valdes MD; Location: [facility]; Service: Orthopaedic ??? KNEE SURGERY Review [...] 102 otherwise normal Imaging: None in the penitentiary Assessment/Plan: Generalized weakness and deconditioning Receiving long term care and physical therapy rehabilitation Right femur [...] with this patient. Advance Care Planning: Aggregate qpth-kf-yatb time, greater than 16 minutes was spent discussing end-of-life care planning with patient/family and/or Power of Horologist Apprentice. Discussed CPR, Intubation, treatment goals, and Quality of life/Intensity of care. Patient desires CPR-Full Treatment This note was dictated using M*Modal fluency dictation system and there may be errors in linoleum layer helper. Despite proof reading the note, there may be mistakes and I apologize for those. By: JEANNA Alatorre, 03/05/2022 10:44 AM CDT documented in this encounter Plan of Treatment Not on file documented as of this encounter Visit Diagnoses Not on filedocumented in this encounter Care Teams Guard Immigration Relationship Specialty Start Date End Date Zaheer Forman MD [address] [place] [address] PCP - General Family Medicine 03/02/22 Aruna Fenton MD #[address] [address] Consulting Physician Urology 04/12/22 documented as of this encounter
--- OUTSIDE RECORDS SUMMARY | 2025-01-03 11:56 | XMS_ITS | Encounter Summary ---
Author Organization [facility] Address [address] [place] [address] Phone Care Team Providers Care Asbestos Abatement Technician Name Role Phone Zaheer Forman MD Primary Care Provider [phone] Aruna Fenton MD Unavailable [phone] Encounter Details Date Type Department Care Team (Late st Contact Info) Description 03/29/2022 Nursing Facility [facility] [address] [place] [phone] Richard Quispe, PAC [address] [place] [address] Social History Tobacco Use Types [...] - 03/29/2022 11:34 AM CDT [facility] [place] PROGRESS NOTE Joshua Quick Jr. is a 66 y.o. male at [facility] for rehabilitation. Prior to coming to rehabilitation facility patient was hospitalized at [facility] fora right femur fracture. Had significant hyponatremia [...] MANAGMENT SYSTEM; Surgeon: Vinod Valdes MD; Location: [facility]; Service: Orthopaedic ??? KNEE ASPIRATION 03/03/2022 Procedure: RIGHT KNEE ASPIRATION; Surgeon: Vinod Valdes MD; Location: [facility]; Service: Orthopaedic ??? KNEE SURGERY Review [...] home Assessment/Plan: Generalized weakness and deconditioning Receiving custodial care and physical therapy rehabilitation Right femur [...] nothing acute. 03/08 - educated on gentle isjhy-ey-etzfba exercises as tolerated. Lightheadedness 03/05 - exam [...] this patient. This note was dictated using [employer] fluency dictation system and there may be errors in cnc technician. Despite proof reading the note, there may be mistakes and I apologize for those. By: JEANNA Alatorre, 03/29/2022 11:34 AM CDT documented in this encounter Plan of Treatment Not on file documented as of this encounter Visit Diagnoses Not on filedocumented in this encounter Care Teams Asbestos Abatement Technician Relationship Specialty Start Date End Date Zaheer Forman MD [address] [place] [address] PCP - General Family Medicine 03/02/22 Aruna Fenton MD #[address] [address] Consulting Physician Urology 04/12/22 documented as of this encounter
--- OUTSIDE RECORDS SUMMARY | 2025-01-03 11:56 | XMS_ITS | Encounter Summary ---
Author Organization [facility] Address [address] [place] [address] Phone Care Team Providers Care Tenant Relations Coordinator Name Role Phone Zaheer Forman MD Primary Care Provider [phone] Aruna Fenton MD Unavailable [phone] Encounter Details Date Type Department Care Team (Late st Contact Info) Description 04/09/2022 Nursing Facility [facility]-WAY [facility] [address] [place] [phone] Richard Quispe, PAC [address] [place] [address] Social History Tobacco Use Types [...] - 04/09/2022 2:35 PM CDT [facility] [place] [facility]P PROGRESS NOTE Joshua Quick Jr. is a 66 y.o. male at [facility] for rehabilitation. Prior to coming to rehabilitation facility patient was hospitalized at [facility] fora right femur fracture. Had [...] MANAGMENT SYSTEM; Surgeon: Vinod Valdes MD; Location: [facility]; Service: Orthopaedic ??? KNEE ASPIRATION 03/03/2022 Procedure: RIGHT KNEE ASPIRATION; Surgeon: Vinod Valdes MD; Location: [facility]; Service: Orthopaedic ??? KNEE SURGERY [...] assisted Assessment/Plan: Generalized weakness and deconditioning Receiving [facility] care and physical therapy rehabilitation Right femur [...] nothing acute. 03/08 - educated on gentle qnghv-de-kblksx exercises as tolerated. 04/05 - better Lightheadedness [...] is actually an order for discharge in [facility] for today but the patient was unaware of this and has nothing in place. If he in the discharging before unable to see him again he understands to continue all his current medications, follow up with his PCP, orthopedic doctor and urologist at the end of the week. This note was dictated using [employer] fluency dictation system and there may be errors in aircraft mechanic. Despite proof reading the note, there may be mistakes and I apologize for those. By: JEANNA Alatorre, 04/09/2022 2:35 PM CDT documented in this encounter Plan of Treatment Not on file documented as of this encounter Visit Diagnoses Not on filedocumented in this encounter Care Teams Tenant Relations Coordinator Relationship Specialty Start Date End Date Zaheer Forman MD [address] [place] [address] PCP - General Family Medicine 03/02/22 Aruna Fenton MD #[address] [address] Consulting Physician Urology 04/12/22 documented as of this encounter
--- OUTSIDE RECORDS SUMMARY | 2025-01-03 11:56 | XMS_ITS | Clinical Summary ---
Author Organization [facility] Address [address] [place] [address] Care Team Providers Care Powerhouse Mechanic Name Role Phone Alexia Nicholson LENIN Primary Care Provider [phone] Bertha Morris PT Unavailable Unavailabl e Allergies No known active allergies Medications No known medications Active Problems No known active problems Encounters Date Type Department Care Team Description 12/28/2024 Plan of Care Documentation [facility] [address] [place] [address] 12/27/2024 1:45 PM CDT Therapy [facility] [address] [place] [address] Bertha Morris, PT Other reduced mobility (Primary Dx); Weakness from Last 3 Months Social History Tobacco Use Types Packs/Day Years Used Date Smoking Tobacco: Never Assessed Sex and Gender Information Value Date Recorded Sex Assigned at Not on file Legal Sex Male 10:34 AM HIGH WORKER Gender Identity Not on file Sexual Orientation Not on file Last Filed Vital Signs Vital Sign Reading Time Taken Comments Blood Pressure - - Pulse - - Temperature - - Respiratory Rate - - Oxygen Saturation - - Inhaled Oxygen Concentration - - Weight 93.4 kg (206 lb) 07/15/2024 10:21 AM HIGH WORKER Height 177.8 cm (5' 10 ) 07/15/2024 10:21 AM HIGH WORKER Body Mass Index 29.56 07/15/2024 10:21 AM HIGH WORKER Plan of Treatment Health Maintenance Due Date Last Done Comments Colon Cancer Screening-Colonoscopy 1955 Depression Screening 1953 Fall Risk Assessment 1953 Hepatitis C Screening 1953 Hepatitis B Screening 1971 Pneumococcal vaccine 65+ (1 of 1 - PCV) 2003 Zoster Vaccine (1 of 2) 2003 Abdominal Aortic Aneurysm (A AA) Screen 2018 Well Visit 65+ 2018 Covid-19 Vaccine (4 - season) 2024 01/17/2022, 09/06/2021, 12/15/2020 Lung Cancer Screening 01/11/2025 07/15/2024 , 04/13/2024, 01/08/2024 Influenza Vaccine (Season Ended) 2025 DTaP/Tdap/Td Vaccine (2 - Td or Tdap) 03/02/203204/2022 Procedures Procedure Name Priority Date/Time Associated Diagnosis Comments CT CHEST WO CONTRAST F/U LUNG SCREEN PROTOCOL Schedule Routine, Read Routine (OP Routine) 07/15/2024 10:20 AM HIGH WORKER Solitary pulmonary nodule from Last 3 Months or Most Recently Relevant to Health Maintenance Results * CT Chest WO Contrast F/U Lung Screen Protocol (07/15/2024 10:20 AM HIGH WORKER) Anatomical Region Laterality Modality Chest N/A Computed Tomogra phy 07/20/2024 1:37 PM HIGH WORKER Narrative 07/20/2024 2:15 PM HIGH WORKER EXAM DESCRIPTION: CT CHEST WO CONTRAST F/U [...] Jason Packer M.D. AG: ZARINA Report ID: [id number] Reading Location: [place] [address] Alexia Nicholson NP IM CT PROCEDURES Final Result from Last 3 Months or Most Recently Relevant to Health Maintenance Insurance MEDICARE [employer] MEDICARE Care Teams Powerhouse Mechanic Relationship Specialty Start Date End Date Alexia Nicholson NP [address] [place] [address] PCP - General Nurse Practitioner 12/29/23 Bertha Morris, PT Physical Therapist Physical Therapy 12/27/24
== END 2025-01-03 11:52 | disposition home or self-care (01) ==
LOC: ANHBWCIMG 11:53
PROVIDERS: PCP Nurse Practitioner Adult Health; Visit Provider Nurse Practitioner Adult Health
DX: M19.012 Primary osteoarthritis, left shoulder (principal)
CPT/HCPCS: 73030